=== PATIENT | male | born 1965 | race Caucasian/White ===

== ENCOUNTER 2016-11-27 23:00 | Observation (INO) ==
[2016-11-28] MEDS ORDERED: Mag Hydrox/Al Hydrox/Simeth 30 ML UDC PO PRN (00:46)
[2016-11-28] MEDS ORDERED: Haloperidol Lactate 5 MG/ML VIAL IM PRN ×2 (00:46→00:51)
[2016-11-28] MEDS ORDERED: *HR* LORazepam 1 MG TABLET PO PRN ×2 (00:46→00:54)
[2016-11-28] MEDS ORDERED: MOM Conc 10 ML UD.LIQ PO PRN (00:46)
[2016-11-28] MEDS ORDERED: *HR* LORazepam 2 MG/ML VIAL IM PRN ×2 (00:46→00:54)
[2016-11-28] MEDS ORDERED: hydrOXYzine pamoate 25 MG CAPSULE PO PRN (00:46)
[2016-11-28] MEDS ORDERED: traZODone 50 MG TABLET PO PRN (00:46)
[2016-11-28] MEDS ORDERED: Ibuprofen 400 MG TABLET PO PRN (00:46)
[2016-11-28] MEDS ORDERED: Nicotine 21 MG PATCH.TD24 TD SCH (09:00)
[2016-11-28 09:40] VITALS: BP 94/68
--- NOTE | 2016-11-28 10:18 | Psychiatry History & Physical ---
Date of Encounter: 11/28/16 Time of Encounter: 09:40 History of Present Illness Patient Stated Chief Complaint: "I was hearing voices." Medicare Admission Attestation: For traditional Medicare patients the provided hospital inpatient services are reasonable and necessary and in the case of services not specified as inpatient -only under 42 CFR 419.22 (n), that they are appropriately provided as inpatient services in accordance 42 CFR 412.3. For Critical Access Hospital the patient may reasonably be expected to be discharged or transferred to a hospital within 96 hours after admission to the Critical Access Hospital. Admitted From: Direct Admit Plans for Post Hospital Care: Home History of Present Illness: Mr. Booker is a 50 year old male with a long-standing history of schizophrenia and PTSD who presented to an outside hospital with increasing hallucinations and thoughts of wanting to hurt himself. He was admitted to for stabilization. Patient reports that he was taking Haldol and Ativan but he stopped taking his medications about a month ago because "I got angry and I did not think I needed them." Patient states that since he stopped the medications his hallucinations have worsened. He did have voices telling him to do things and that they were going to hurt him. He also had a plan to sit on the highway and get hit by a car in order to make the voices stop. He reports continued auditory hallucinations intermittently but denies any at the time of the interview. He does report low mood and increased anxiety. The Ativan does seem to help with patient's anxiety level. He denies paranoia or delusions at this time and is cooperative with staff if a little guarded. Past Med Surg Social Fam HX - Past Medical History Medical history: no medical history - Past Psychiatric History Psychiatric history: Reports: schizophrenia, previous psychiatric hospitalization Past psychiatric history details: Patient reports previous admissions to the hospital for his hallucinations. [facility] is [facility] and does have an outpatient psychiatrist there. Family psychiatric history: Yes Family Psychiatric History Details: Patient reports a family history of schizophrenia. Family History of Suicide: Unknown - Past Surgical History Surgical History: other - Social History Smoking Status: Current every day smoker Smokeless Tobacco Status: No Alcohol use: none Drug use: none Occupational status: disabled Current living situation: Home - Family History Mother History Unknown: Yes Living Status: Cause of : Patient is unsure Medications & Allergies Haloperidol [Haldol] 5 mg PO BID #20 tablet 07/06/16 [Rx] LORazepam [Ativan] 1 mg PO TID 07/27/16 [History] Allergies codeine Adverse Reaction (Verified 01/29/15 07:13) Nausea Review of Systems Constitutional: Denies: fever, chills, weakness, weight change Eyes: Denies: eye pain, vision change Ears, Nose, Throat: Denies: ear pain, throat pain, dental pain, hearing loss, congestion Cardiovascular: Denies: chest pain, palpitations, dyspnea on exertion Respiratory: Denies: cough, dyspnea, wheezes Gastrointestinal: Denies: abdominal pain, nausea, vomiting, diarrhea, constipation Genitourinary male: Denies: urgency, dysuria, frequency, genital lesions Genitourinary female: Denies: urgency, dysuria, frequency, abnormal menses, dyspareunia Musculoskeletal: Denies: joint swelling, joint pain Integumentary: Denies: rash, lesions, pruritus Neurological: Denies: headache, weakness, numbness, memory loss Psychiatric: Reports: anxiety, abnormal sleep pattern, suicidal ideation, auditory hallucinations, irritability, panic attacks Endocrine: Denies: fatigue, heat or cold intolerance Hematologic/Lymphatic: Denies: easy bruising, lymphadenopathy Allergic/Immunologic: Denies: urticaria, itchy eyes Mental Status Exam Patient orientation: Yes Person, Yes Time, Yes Place Level of alertness: Alert Patient appearance: Disheveled Behavior: guarded Psychomotor activity: Slowed Eye contact: Minimal Contact Mood description: Anxious Affect description: blunted Speech pattern: Slowed Speech volume: Normal Thought process: [place] Thought content: No Suicidal ideation Perceptual disturbances: No Reacting to internal stimuli, Yes Auditory hallucinations Attention span: Capable of Focused Attention Memory description: Grossly Intact Patient reliability: Reliable Historian Intelligence estimate: Average Judgment: Limited Insight: Partial Exam - Neurological Neurological exam IM: Present: CN II-XII intact Results - Vital Signs Vital signs: Temp Pulse Resp BP 97.4 F L 96 18 94/68 11/28/16 09:00 11/28/16 09:00 11/28/16 09:00 11/28/16 09:00 Assessment and Plan (1) Schizophrenia Current visit: Yes Status: Acute Plan: Admit inpatient for safety and stabilization, Close observation, Suicide Precautions per unit protocol, Encourage participation in unit milieu, Group Therapy, Monitor sleep, Monitor appetite Additional Plan: We will admit patient to 1 a for psychiatric stabilization. We have restarted Haldol for hallucinations. Patient's outpatient medications were reviewed and restarted. Patient would prefer to get his treatment at [facility] we will attempt to transfer him there. Continue to monitor and encourage group attendance as tolerated. Risks, benefits, side effects, alternatives discussed w/pt: Yes Patient agreeable to treatment: Yes Plans for Post Hospital Care: Home Estimated Length of Stay (Days): 2 Qualifiers: Schizophrenia type: paranoid schizophrenia Qualified Code(s): F20.0 - Paranoid schizophrenia (2) Anxiety Current visit: Yes Status: Acute Plan: Admit inpatient for safety and stabilization, Close observation, Suicide Precautions per unit protocol, Encourage participation in unit milieu, Group Therapy, Monitor sleep, Monitor appetite Additional Plan: Encourage positive coping strategies. Continue Ativan as needed for anxiety. Risks, benefits, side effects, alternatives discussed w/pt: Yes Patient agreeable to treatment: Yes
--- NOTE | 2016-11-28 14:08 | Discharge Summary ---
Date of Encounter: 11/28/16 Time of Encounter: 10:00 Diagnosis - Discharge Diagnosis (1) Schizophrenia Priority: Primary Status: Acute Qualifiers: Schizophrenia type: paranoid schizophrenia Qualified Code(s): F20.0 - Paranoid schizophrenia (2) Anxiety Priority: Secondary Status: Acute Medications - Discharge Medications Haloperidol [Haldol] 5 mg PO BID #20 tablet 07/06/16 [Rx] LORazepam [Ativan] 1 mg PO TID 07/27/16 [History] Haloperidol [Haldol] 5 mg PO BID tablet 11/28/16 [Rx] Allergies codeine Adverse Reaction (Verified 01/29/15 07:13) Nausea Provider Date of admission: 11/27/16 23:00 Primary care physician: PCP NO Discharging clinician: Cristel Juarez Assessment and Plan - Patient/Caregiver Discharge Instructions Activity: other (Transfer to [facility]) Diet: regular diet - Follow up Plan Follow up with: [facility] [Outside] ([facility] staff will schedule outpatient follow-up once your discharge date from [facility] mental health unit is known.) Functional capacity at discharge: independent ambulation Overall status at discharge: patient is not back to baseline Disposition: Transfer Other Hospital Course Hospital course: Mr. Booker is a 50 year old male with schizophrenia and anxiety symptoms who presented to an outside hospital with psychosis and suicidal ideation. He was admitted to [facility] for psychiatric stabilization because there were no beds available at the [facility]. Patient was incorporated into the therapeutic milieu and offer group and individual as well as recreational therapies. He was also offered psychoeducational materials and supportive therapy. He was placed on suicide precautions and close observation. Patient verbalized he was taking Haldol and Ativan and the prescription for restarted. He did request transfer to the [facility] as soon as there were available beds. Patient continued to report intermittent auditory hallucinations during his hospital stay. The [facility] accepted the patient and he will be transferred there for further treatment. Patient is stable for transfer and to continue further care at the [facility]. - Time Spent with Patient Total time spent providing and/or coordinating discharge services: Less than 30 minutes Quality - Multiple Antipsychotics Patient discharged on 2 or more antipsychotic medications: No Procedures - Procedures Procedures: Medication Management Mental Status Exam - Mental Status Exam Patient orientation: Yes Person Level of alertness: Alert Patient appearance: Unkempt Behavior: calm Psychomotor activity: Normal Eye contact: Diverts Contact Mood description: Anxious Affect description: flat Speech pattern: Slowed Speech Volume: Normal Thought process: [place] Thought Content: No Suicidal ideation, No Homicidal ideation Perceptual Disturbances: Yes Auditory hallucinations Judgment: Poor Insight: None
[2016-11-28] MEDS ORDERED: *HR* LORazepam 1 MG TABLET PO SCH (15:00)
== END 2016-11-28 15:10 ==
LOC: 1ANU 23:00 → INTOOBSV 23:00
PROVIDERS: ADMIT Student in an Organized Health Care Education/Training Program; ATTEND Student in an Organized Health Care Education/Training Program

== ENCOUNTER 2017-05-13 12:34 | Inpatient (IN) ==
--- NOTE | 2017-05-13 12:47 | Emergency Department Note ---
Overdose - [facility] Narrative Medical decision making narrative: Patient brought in secondary to overdose on Benadryl 48 pills of 25 mg capsules. Patient presents with tachycardia in the 100 beats minute with hypertension and dry mouth. he also has dilated pupils that are reactive to light and confusion. Patient is treated with 0.5 mg of Ativan which did correct his tachycardia. Patient became a little more lively and appointment time. Discussion with poison control was held he states that watch patient for QT prolongation, and patient will need to be monitored for 12-18 hours. Patient's labs show no elevations of acetaminophen or salicylate acid. No other positives on tox screen. Head CT negative for any intracranial abnormalities. Patient being held nothing by mouth. Plan is for admission for further evaluation. Patient may require psych eval because unable to get reasoning for Benadryl ingestion but this may be intentional ingestion. Patient lab work is normal. Patient is accepted for admission by Dr. Miramontes the hospitalist - Lab Data Lab results reviewed: Yes I reviewed the patient's lab results. Lab results narrative: Short CBC 05/13/17 Range/Units 13:19 WBC 6.8 (4.3-11.1) K/mcL Hgb 13.9 (12.9-16.9) g/dL Hct 42.5 (37.5-50.1) % Plt Count 246 (140-400) K/mcL Neutrophils # 3.6 (1.6-8.9) K/mcL BMP 05/13/17 Range/Units 13:19 Sodium 140 (136-145) mEq/L Potassium 5.1 (3.5-5.1) mEq/L Chloride 109 H (98-107) mEq/L Carbon Dioxide 26 (23-29) mEq/L BUN 21 H (6-20) mg/dL Creatinine 1.14 (0.70-1.30) mg/dL Glucose 92 (70-105) mg/dL Calcium 9.2 (8.6-10.3) mg/dL Liver Function 05/13/17 Range/Units 13:19 Total Bilirubin 0.4 (0.3-1.0) mg/dL Direct Bilirubin 0.0 (0.0-0.2) mg/dL AST 29 (13-39) Units/L ALT 63 H (7-52) Units/L Alkaline Phosphatase 66 (34-104) Units/L Albumin 4.0 (3.5-5.7) g/dL Urine 05/13/17 Range/Units 13:18 Urine Color Yellow (Yellow) Urine Clarity Clear (Clear) Urine pH 6.5 (5.0-8.0) pH Units Ur Specific [place] 1.017 (1.010-1.025) Urine Protein Negative (Neg-Trace) mg/dL Urine Glucose (UA) Normal (Normal) mg/dL Result diagrams: 05/13/17 13:19 05/13/17 13:19 - Radiology Data Radiology results reviewed: Yes I reviewed the patient's radiology results. Head CT 05/13/17 13:45 IMPRESSION: No acute intracranial abnormality. D/ / Rafael Woo MD / Rafael Woo MD Interpreting Provider: Rafael Woo MD - EKG Data EKG attestation: Yes I reviewed and interpreted this EKG. EKG results narrative: EKG taken 05/13/2017 at 1250 hrs. shows sinus rhythm with mild Q-T/QTc duration of 495/449 ms, QS duration 109 ms. Rate 96 bpm with out STL elevation and depressions in any leads. No previous EKG for comparison Overdose HPI - General Chief Complaint: ED Overdose Stated Complaint: benadryl OD Time Seen by Provider: 05/13/17 12:37 Source: EMS Mode of arrival: EMS Limitations: altered mental status Nursing Notes Reviewed: Yes Vital Signs Reviewed: Yes - History of Present Illness HPI Narrative: 51-year-old male brought in by EMS for suspected Benadryl overdose of 4825 mg pills Benadryl. Patient's coming in from a [facility]. Patient has periodic episodes of altered mental status which makes it difficult for patient answer any questions at this time. Pt Subjective Complaint: intentional overdose - Related Data Home Medications Medication Instructions Recorded Confirmed Benztropine Mesylate 1 mg PO BID 05/13/17 05/13/17 Chlorhexidine Gluconate [Peridex] 15 ml MM BID 05/13/17 05/13/17 Cholecalciferol (D-3) [Vitamin D] 2,000 unit PO DAILY 05/13/17 05/13/17 DiphenhydraMINE [Benadryl] 25 mg PO AD PRN 05/13/17 05/13/17 Ibuprofen [Motrin] 400 mg PO Q6H PRN 05/13/17 05/13/17 Lactose-Reduced Food [Ensure Plus] 237 ml PO BID 05/13/17 05/13/17 Loxapine Succinate [Loxapine] 100 mg PO BID 05/13/17 05/13/17 Melatonin [Melatin] 3 mg PO HS 05/13/17 05/13/17 Mirtazapine [Remeron] 15 mg PO HS 05/13/17 05/13/17 Nitroglycerin [Nitrostat] 0.4 mg SL Q5M PRN 05/13/17 05/13/17 Propranolol [Inderal] 10 mg PO BID 05/13/17 05/13/17 hydrOXYzine HCl [Hydroxyzine HCl] 50 mg PO QID PRN 05/13/17 05/13/17 Allergies Allergy/AdvReac Type Severity Reaction Status Date / Time codeine AdvReac Nausea Verified 04/23/17 16:33 hydrocodone AdvReac See Verified 05/13/17 15:23 Comments All systems ED: reviewed and negative except as stated. Review of Systems: As Per HPI Constitutional: Denies: fever, weakness Eyes: Denies: vision change ENT ED: Denies: congestion Cardiovascular: Denies: chest pain, palpitations Past Medical History - Past Medical History Attestation: Yes The following information was validated with the patient. Source: patient, nursing notes reviewed Medical history: Reports: myocardial infarction, other (schizophrenic) Surgical history: Reports: orthopedic, other (Right hand surgery) Psychiatric history: Reports: anxiety, bipolar, PTSD, schizophrenia, previous psychiatric hospitalization - Social History Smoking Status: Current every day smoker Smokeless Tobacco Status: No Alcohol use: Reports: none Drug use: Reports: none Physical Exam Head: atraumatic Skin: Warm, dry, intact Head: Normocephalic and atraumatic Neck: Supple, trachea midline and no tenderness Cardiovascular: Tachycardic, no murmur, normal perfusion Respiratory: CTAB, no wheezing, cough, or respiratory distress Musculoskeletal: No obvious deformity. Normal strength on exam. GI: Soft, nontender, nondistended. Neuro: Unable to complete neurologic exam secondary to patient condition however he is moving all extremities. Course - Consultations Consultation #1: Poison control: tachycardia htn treat with benzo watch for urine retention Time: 12:45 Disposition Clinical Impression: Overdose of drug Qualifiers: Encounter type: initial encounter Injury intent: undetermined intent Qualified Code(s): T50.904A - Poisoning by unspecified drugs, medicaments and biological substances, undetermined, initial encounter Altered mental status Qualifiers: Altered mental status type: disorientation Qualified Code(s): R41.0 - Disorientation, unspecified Disposition: Admitted As Inpatient Condition: Fair Time of Disposition: 16:23 Attestation Statement - Attestation Attestation: I, Andreas Morejon, examined this patient and my medical decision-making was reviewed with the REHAB SERVICES AIDE/PA/Advanced Practice Nurse/Resident Physician. I agree with the documented findings, disposition and treatment plan as described except to the extent set forth below. 51-year-old male presents to emergency department after suspected Benadryl overdose. Patient is from a [facility], he was reported to have taken a large amount of 25 mg Benadryl tablets. Patient is unable to give a history regarding his case and presentation. It is unclear whether this was a suicide attempt. Patient's pupils are large bilaterally however they are reactive to light and accommodation. Patient is unable to follow commands for a full neurologic evaluation however he is moving all extremities. CT of the head was negative for acute fracture or intracranial hemorrhage. Resident spoke with the Poison Control Center who recommended the patient be evaluated and observed in the hospital for an extended period of time. He will be admitted for further Evaluation and ultimately a behavioral health evaluation for possible suicidal ideation.
[2017-05-13] MEDS ORDERED: *HR* LORazepam 2 MG/ML VIAL IVP ONE (12:50)
[2017-05-13] MEDS ORDERED: 0.9 % Sodium Chloride 1,000 ML IVC ONE (12:50)
[2017-05-13 13:31] LABS: Basophils # 0.1 K/mcL (0.0-0.2); Basophils % 0.7 %; Eosinophils # 0.2 K/mcL (0.0-0.6); Eosinophils % 2.3 %; Hematocrit 42.5 % (37.5-50.1); Hemoglobin 13.9 g/dL (12.9-16.9); Immature Granulocytes % 0.3 % (0-4); Lymphocytes # 2.3 K/mcL (0.6-4.6); Lymphocytes % 34.4 %; Mean Corpuscular HGB Conc 32.7 g/dL (31.6-35.5); Mean Corpuscular Volume 91.6 fL (83.0-100.0); Mean Platelet Volume 10.6 fL (9.4-12.4); Monocytes # 0.6 K/mcL (0.0-1.3); Neutrophils # 3.6 K/mcL (1.6-8.9); Platelet Count 246 K/mcL (140-400); Red Blood Count 4.64 M/mcL (4.19-5.50); Segmented Neutrophils % 53.3 %
[2017-05-13 13:34] LABS: Bilirubin,Urine Negative (Negative); Blood,Urine Negative (Negative); Clarity,Urine Clear (Clear); Color,Urine Yellow (Yellow); Glucose,Urine (UA) Normal (Normal); Ketones,Urine Negative (Negative); Leukocyte Esterase,Urine Trace (Negative); Nitrite,Urine Negative (Negative); PH,Urine 6.5 pH Units (5.0-8.0); Protein,Urine Negative (Neg-Trace); Specific Gravity,Urine 1.017 (1.010-1.025); Urobilinogen,Urine Normal (Normal)
[2017-05-13 13:35] LABS: Bacteria,Urine None Seen per hpf (None-Few); Hyaline Casts,Urine None Seen per lpf (None-Few); Squamous Epithelial Cell,Urine Many per lpf (None-Few); WBC,Urine 0-3 per hpf (0-3)
[2017-05-13 13:40] LABS: Amphetamine Screen,Urine Negative ng/mL (Cutoff=1000); Barbiturate Screen,Urine Negative ng/mL (Cutoff=200); Benzodiazepines Screen,Urine Negative ng/mL (Cutoff=200); Cannabinoid Screen,Urine Negative ng/mL (Cutoff = 50); Cocaine Screen,Urine Negative ng/mL (Cutoff= 300); Opiate Screen,Urine Negative ng/mL (Cutoff=300); Phencyclidine Screen,Urine Negative ng/mL (Cutoff=25)
[2017-05-13 13:46] LABS: Acetaminophen < 1.0 mcg/mL (10-30); Ethanol < 10 mg/dL (0-10); Salicylate < 5.0 mg/dL (15.0-30.0)
[2017-05-13 14:03] LABS: Alanine Aminotransferase 63 Units/L (7-52); Albumin/Globulin Ratio 1.5 (1.1-2.2); Alkaline Phosphatase 66 Units/L (34-104); Aspartate Amino Transferase 29 Units/L (13-39); BUN/Creatinine Ratio 18 (6-26); Bilirubin,Indirect 0.4 mg/dL (0.0-1.2); Bilirubin,Total 0.4 mg/dL (0.3-1.0); Blood Urea Nitrogen 21 mg/dL (6-20); Calcium 9.2 mg/dL (8.6-10.3); Carbon Dioxide 26 mEq/L (23-29); Chloride 109 mEq/L (98-107); Globulin 2.6 g/dL (2.4-3.5); Glucose 92 mg/dL (70-105); Osmolality,Calculated 293 (280-300); Potassium 5.1 mEq/L (3.5-5.1); Sodium 140 mEq/L (136-145); Total Protein 6.6 g/dL (6.4-8.9); eGFR For African Americans > 60 (> 60); eGFR For Non-African Americans > 60 (> 60)
[2017-05-13] MEDS ORDERED: Naloxone 0.4 MG/ML INJ IVP PRN (21:35)
[2017-05-13] MEDS ORDERED: Acetaminophen 325 MG TABLET PO PRN (21:35)
[2017-05-13] MEDS ORDERED: Ondansetron 4 MG/2 ML VIAL IVP PRN (21:35)
[2017-05-13] MEDS ORDERED: Nitroglycerin 0.4 MG TAB.SUBL SL PRN (21:39)
[2017-05-13] MEDS ORDERED: hydrOXYzine pamoate 25 MG CAPSULE PO PRN (21:39)
[2017-05-13] MEDS ORDERED: Melatonin 3 MG TABLET PO PRN (22:00)
[2017-05-13] MEDS: 0.9 % Sodium Chloride 1,000 ML IVC SCH (22:09)
[2017-05-13] MEDS ORDERED: Nicotine 2 MG GUM BC PRN (22:15)
--- NOTE | 2017-05-13 23:39 | Internal Med History&Physical ---
Date of Encounter: 05/13/17 Time of Encounter: 21:00 Assessment and Plan (1) Overdose of drug Current visit: Yes Status: Acute Pt. reports taking 12 Benadryl last night at 25 mg each to help him sleep. Patient states he did not sleep for 6 days prior. Patient also states he is use this method several times before but denies any intent for self-harm or any suicidal ideations. Patient has history of anxiety, bipolar depression, schizophrenia, PTSD, prior psychiatric hospitalization. CT of head negative for acute fracture or intracranial hemorrhage today. Poison Control Center was contacted with recommendation that patient be observed for 12-18 hours for QT prolongation. Continuous cardiac telemetry. IV 0.9 NS @ 100 mL/HR. Continue pts. psychiatric medications. Will hold diphenhydramine. Psychiatric consult ordered. Patient discussed with Dr. Parekh who agrees w/plan of care. Pt. is at high risk for further morbidity based on OD and current tachycardia, previous SD, and hx of psychiatric conditions. Observation. Qualifiers: Encounter type: initial encounter Injury intent: undetermined intent Qualified Code(s): T50.904A - Poisoning by unspecified drugs, medicaments and biological substances, undetermined, initial encounter (2) History of psychiatric disorder Current visit: Yes Status: Chronic Hx of chronic anxiety, bipolar depression, PTSD, schizophrenia, and previous psychiatric hospitalization. Continue patient's Remeron, loxapine, hydroxyzine, and benztropine mesylate. (3) Hx of myocardial infarction, greater than 8 weeks Current visit: Yes Status: Chronic Hx of SD 3 months ago w/o stent placement. Stable. (4) HTN (hypertension) Current visit: Yes Status: Chronic Hx of chronic HTN. Monitor pt. and VS. Continue pts. Inderal. Qualifiers: Hypertension type: essential hypertension Qualified Code(s): I10 - Essential (primary) hypertension (5) Tobacco abuse Current visit: Yes Status: Chronic Hx of chronic tobacco abuse. Pt. does not wish to quit at this time d/t stress in life. Nicotine gum ordered. (6) DVT prophylaxis Current visit: Yes Status: Acute Lovenox 40 mg 0600 for DVT prophylaxis. Monitor pt. for signs of bleeding. Internal Medicine - H&P: HPI Chief complaint: Benadryl OD Admitted From: Emergency Dept Plans for Post Hospital Care: Home History of present illness: Mr. Booker is a 51 year old male with medical hx of previous myocardial infarction 3 months with no stent placement, HTN, and psychiatric history of anxiety, bipolar depression, PTSD, schizophrenia, and previous psychiatric hospitalization presents from the ED with chief complaint abdominal draw overdose last night. Patient states he took 12 Benadryl at 25 mg each to help sleep because he had not slept for 6 days prior. Patient states he has done several times before. Patient denies any suicidal ideation or intent for self- harm. Patient reports tachycardia, confusion, and anxiousness. Patient denies recent illness, fever, chills, nausea, vomiting, chest pain, palpitations, headache, changes in vision, abdominal pain, diarrhea, constipation, numbness, tingling, dizziness, lightheadedness, pre-syncope, or syncope. Past Med Surg Social Fam HX - Past Medical History Source: patient Medical history: myocardial infarction (3 months ago w/no stents), other ( schizophrenic) Psychiatric history: anxiety, bipolar, PTSD, schizophrenia, previous psychiatric hospitalization - Past Surgical History Surgical History: orthopedic, other (Right hand surgery) - Social History Smoking Status: Current every day smoker Packs per day: 1.5 PPD Smokeless Tobacco Status: No Alcohol use: none Drug use: none Current living situation: [facility] Activity Level: Independent ambulation Recent Out of Country Travel Within the Last 8 Weeks: No Exposure or Possible Exposure to Illness During Travel: No - Family History Mother History Unknown: Yes Race: Family Member Ethnicity: Non- Living Status: Father Race: Family Member Ethnicity: Non- Living Status: Age at : 72 Cause of : Unknown Sister Race: Family Member Ethnicity: Non- Living Status: Still Living Hx Family Psychosocial Disorders: Yes (PTSD) Internal Medicine - H&P: Meds Benztropine Mesylate 1 mg PO BID 05/13/17 [History] Chlorhexidine Gluconate [Peridex] 15 ml MM BID 05/13/17 [History] Cholecalciferol (D-3) [Vitamin D] 2,000 unit PO DAILY 05/13/17 [History] DiphenhydraMINE [Benadryl] 25 mg PO AD PRN 05/13/17 [History] Ibuprofen [Motrin] 400 mg PO Q6H PRN 05/13/17 [History] Lactose-Reduced Food [Ensure Plus] 237 ml PO BID 05/13/17 [History] Loxapine Succinate [Loxapine] 100 mg PO BID 05/13/17 [History] Melatonin [Melatin] 3 mg PO HS 05/13/17 [History] Mirtazapine [Remeron] 15 mg PO HS 05/13/17 [History] Nitroglycerin [Nitrostat] 0.4 mg SL Q5M PRN 05/13/17 [History] Propranolol [Inderal] 10 mg PO BID 05/13/17 [History] hydrOXYzine HCl [Hydroxyzine HCl] 50 mg PO QID PRN 05/13/17 [History] 3 Allergy/AdvReac Type Severity Reaction Status Date / Time codeine AdvReac Nausea Verified 04/23/17 16:33 hydrocodone AdvReac See Verified 05/13/17 15:23 Comments All Systems PM: A 10-system review of systems was performed and is negative for pertinent findings except as documented above in the HPI. - Constitutional Constitutional: no chills, no fever(s), no night sweats - EENT Eyes: no change in vision, no discharge, no pain, no photophobia Ears: no ear discharge, no ear pain, no tinnitus Nose, mouth and throat: no dysphagia, no nasal discharge, no neck pain, no sore throat - Breasts Breasts: as per HPI - Cardiovascular Cardiovascular ROS IM: as per HPI, irregular heart rhythm (Tachycardia) - Respiratory Respiratory: no cough, no dyspnea, no wheezing, no excessive phlegm production - Gastrointestinal Gastrointestinal: no abdominal pain, no diarrhea, no hematemesis, no hematochezia, no melena, no nausea, no vomiting - Genitourinary Genitourinary ROS male: as per HPI - Musculoskeletal Musculoskeletal ROS IM: no numbness, no tingling - Integumentary Integumentary IM: no rash, no unusual bruising - Neurological Neurological ROS: no confusion, no convulsions, no focal weakness, no numbness, no tingling, no tremor(s) - Psychiatric Psychiatric: as per HPI, anxiety, depression, other (PTSD, schizophrenia, previous psychiatric hospitalization) - Endocrine Endocrine IM: as per HPI - Hematologic/Lymphatic Hematologic/Lymphatic: no easy bruising - Allergic/Immunologic Allergic/Immunologic: as per HPI - Constitutional Vitals: Temp Pulse Resp BP Pulse Ox 97.8 F 66 17 121/85 95 05/13/17 23:23 05/13/17 23:23 05/13/17 23:23 05/13/17 23:23 05/13/17 23:23 General appearance: Present: cooperative, A&O X 3, pleasant, no acute distress, answers questions appropriately - Head Head exam: Present: atraumatic, normal inspection, normocephalic - Eye Eye exam: Present: PERRL, conjuntiva pink, sclera anicteric Pupils: Present: PERRL - ENT ENT exam: Present: normal exam, normal external ear exam - Neck Neck exam general surgery: Present: normal inspection, supple, trachea midline. Absent: lymphadenopathy - Respiratory Respiratory exam: Present: CTAB. Absent: accessory muscle use, rales, rhonchi, wheezes - Cardiovascular Cardiovascular exam: Present: tachycardia - GI/Abdominal GI/Abdominal exam: Present: normal bowel sounds, soft, no peritoneal signs. Absent: distended, tenderness - Rectal Rectal exam: Present: deferred - Additional comments: exam deferred. - Extremities Exam Extremities exam: Present: warm, radial pulses palpable and symmetrical. Absent : calf tenderness, cyanotic, pedal edema - Back Exam Back exam: Present: normal inspection - Neurological Exam Neurological exam: Present: CN II-XII intact, oriented X3, no focal deficits. Absent: pronater drift, facial droop, speech deficit - Psychiatric Psychiatric exam: Present: anxious - Skin Skin exam: Present: dry, intact Internal Med - H&P Results - Labs CBC & Chem 7: 05/13/17 13:19 05/13/17 13:19 - Diagnostic Studies CT scan - head Additional comments: Impressions Head CT 05/13/17 13:45 IMPRESSION: No acute intracranial abnormality. D/ / Rafael Woo MD / Rafael Woo MD Interpreting Provider: Rafael Woo MD
[2017-05-14] MEDS ORDERED: *HR* Enoxaparin 40 MG/0.4 ML SYRINGE SQ SCH (06:00)
[2017-05-14 06:40] LABS: Basophils # 0.1 K/mcL (0.0-0.2); Basophils % 0.8 %; Eosinophils # 0.3 K/mcL (0.0-0.6); Eosinophils % 3.3 %; Hematocrit 43.4 % (37.5-50.1); Immature Granulocytes % 0.4 % (0-4); Lymphocytes # 3.3 K/mcL (0.6-4.6); Lymphocytes % 43.5 %; Mean Corpuscular HGB Conc 32.3 g/dL (31.6-35.5); Mean Corpuscular Hemoglobin 30.2 pg (28.0-33.3); Mean Corpuscular Volume 93.5 fL (83.0-100.0); Mean Platelet Volume 10.5 fL (9.4-12.4); Monocytes # 0.6 K/mcL (0.0-1.3); Monocytes % 7.5 %; Neutrophils # 3.4 K/mcL (1.6-8.9); Platelet Count 251 K/mcL (140-400); Red Blood Count 4.64 M/mcL (4.19-5.50); Red Cell Distribution Width 13.2 % (11.5-14.5); Segmented Neutrophils % 44.5 %
[2017-05-14 07:08] LABS: Alanine Aminotransferase 67 Units/L (7-52); Albumin 3.9 g/dL (3.5-5.7); Albumin/Globulin Ratio 1.6 (1.1-2.2); Alkaline Phosphatase 65 Units/L (34-104); Aspartate Amino Transferase 31 Units/L (13-39); BUN/Creatinine Ratio 15 (6-26); Bilirubin,Total 0.5 mg/dL (0.3-1.0); Blood Urea Nitrogen 16 mg/dL (6-20); Calcium 8.9 mg/dL (8.6-10.3); Carbon Dioxide 27 mEq/L (23-29); Chloride 110 mEq/L (98-107); Chol/HDL Ratio 3.4 (0-4.9); Cholesterol 171 mg/dL (< 200); Globulin 2.5 g/dL (2.4-3.5); Glucose 92 mg/dL (70-105); HDL Cholesterol 50 mg/dL (40-59); LDL Cholesterol,Calculated 96 mg/dL (0-99); Magnesium 2.2 mg/dL (1.6-2.6); Osmolality,Calculated 295 (280-300); Potassium 4.1 mEq/L (3.5-5.1); Sodium 142 mEq/L (136-145); Total Protein 6.4 g/dL (6.4-8.9); Triglycerides 126 mg/dL (< 150); eGFR For African Americans > 60 (> 60); eGFR For Non-African Americans > 60 (> 60)
[2017-05-14] MEDS: 0.9 % Sodium Chloride 1,000 ML IVC SCH (08:30)
[2017-05-14] MEDS ORDERED: LOXAPINE 10 MG PO SCH (09:00)
[2017-05-14] MEDS ORDERED: Chlorhexidine Rinse 15 ML MOUTHWASH MM SCH (09:00)
[2017-05-14] MEDS ORDERED: Cholecalciferol (D-3) 1,000 UNIT TABLET PO SCH (09:00)
[2017-05-14] MEDS ORDERED: LACTOSE REDUCED FOOD PO SCH (09:00)
[2017-05-14 11:48] VITALS: BP 110/75
--- NOTE | 2017-05-14 12:15 | Discharge Summary ---
Date of Encounter: 05/14/17 Time of Encounter: 08:10 - Discharge Diagnosis (1) Overdose of drug Priority: Primary Status: Acute Comments: Patient reports taking overdose of 12 twenty-five mg Benadryl capsules last day in an attempt to sleep. He states he had not stopped for 6 nights. Patient denies any suicidal ideations, was not trying to harm himself. Patient was prior medical history of anxiety, bipolar depression, schizophrenia , PTSD, prior mental health admissions. He does live in a [place] [facility]. Patient was evaluated by psychiatry today, he was found to not have any suicidal or homicidal ideations. He does not want to harm himself. Patient wants to go home, psychiatry agrees that he is safe and stable for discharge. CT of his head was negative. Labs are within normal limits, vital signs are within normal limits and stable. EKG Qualifiers: Encounter type: initial encounter Injury intent: undetermined intent Qualified Code(s): T50.904A - Poisoning by unspecified drugs, medicaments and biological substances, undetermined, initial encounter (2) History of psychiatric disorder Priority: Secondary Status: Chronic Comments: Pt has history of PTSD, bipolar disorder, schizophrenia, and prior mental health admissions. Continue Remeron, Loxapine, hydroxyzine, and Cogentin. (3) Hx of myocardial infarction, greater than 8 weeks Priority: Secondary Status: Chronic Comments: ID 3 months ago with stent placement. Stable. Denies chest pain. (4) HTN (hypertension) Priority: Primary Status: Chronic Comments: Chronic. Continue home medications. Qualifiers: Hypertension type: essential hypertension Qualified Code(s): I10 - Essential (primary) hypertension (5) DVT prophylaxis Priority: Secondary Status: Acute Comments: Lovenox subcutaneous daily. - Discharge Medications Home Medications: Benztropine Mesylate 1 mg PO BID 05/13/17 [History] Chlorhexidine Gluconate [Peridex] 15 ml MM BID 05/13/17 [History] Cholecalciferol (D-3) [Vitamin D] 2,000 unit PO DAILY 05/13/17 [History] DiphenhydraMINE [Benadryl] 25 mg PO AD PRN 05/13/17 [History] Ibuprofen [Motrin] 400 mg PO Q6H PRN 05/13/17 [History] Lactose-Reduced Food [Ensure Plus] 237 ml PO BID 05/13/17 [History] Loxapine Succinate [Loxapine] 10 mg PO BID 05/13/17 [History] Melatonin [Melatin] 3 mg PO HS 05/13/17 [History] Mirtazapine [Remeron] 15 mg PO HS 05/13/17 [History] Nitroglycerin [Nitrostat] 0.4 mg SL Q5M PRN 05/13/17 [History] Propranolol [Inderal] 10 mg PO BID 05/13/17 [History] hydrOXYzine HCl [Hydroxyzine HCl] 50 mg PO QID PRN 05/13/17 [History] Allergies/Adverse Reactions: 3 Allergy/AdvReac Type Severity Reaction Status Date / Time codeine AdvReac Nausea Verified 04/23/17 16:33 hydrocodone AdvReac See Verified 05/13/17 15:23 Comments Date of admission: 05/14/17 09:35 [facility] Discharging clinician: Lakesha Jiménez Anticipated date of discharge: 05/14/17 - Patient Status Disposition: Home, Self-Care Condition: Good Functional capacity at discharge: independent ambulation Overall status at discharge: patient is back to baseline - Discharge Instructions Follow Up With: [facility] [Primary Care Provider] - Additional Instructions: Please follow-up with your [facility] doctor in the next 7-10 days for recheck. Please resume your normal home medications. Please return to your normal activities and diet as tolerated. Return to the emergency department as needed for any other problems or concerns. - Diet and Activity Activity: increase activity as tolerated Diet: advance to your usual diet Hospital course: Mr. Booker is a 51 year old male with past medical history of recent ID 3 months ago with no stent placement, hypertension, anxiety, bipolar, PTSD, schizophrenia. He was admitted to Hospital last night from his [facility] with intentional overdose with no intent to harm himself. Pt states that he was not trying to harm himself and states that he was trying to get some sleep since, per his account, he had not slept in 6 nights. Pt was evaluated by psychiatry, found to be stable and suitable for discharge. His labs and vitals are stable. Pt states that he needs to be discharged to go meet the son of a friend of his and has been anxious to be discharged since 0820 this a.m. - Time Spent with Patient Total time spent providing and/or coordinating discharge services: Less than 30 minutes - Constitutional Vitals: Temp Pulse Resp BP Pulse Ox 98.7 F 92 16 110/75 96 05/14/17 11:46 05/14/17 11:46 05/14/17 11:46 05/14/17 11:46 05/14/17 11:46 General appearance: Present: cooperative, A&O X 3, pleasant, no acute distress, answers questions appropriately - Head Head exam: Present: atraumatic, normal inspection, normocephalic - Eye Eye exam: Present: normal appearance, conjuntiva pink, sclera anicteric - Neck Neck exam general surgery: Present: supple, trachea midline. Absent: lymphadenopathy, tenderness - Respiratory Respiratory exam: Present: CTAB. Absent: accessory muscle use, rales, rhonchi, wheezes - Cardiovascular Cardiovascular exam: Present: RRR, +S1, +S2. Absent: diastolic murmur, gallop, rubs, systolic murmur - GI/Abdominal GI/Abdominal exam: Present: normal bowel sounds, soft, no peritoneal signs. Absent: hepatomegaly, tenderness - Extremities Exam Extremities exam: Present: normal capillary refill, warm, radial pulses palpable and symmetrical. Absent: calf tenderness, cyanotic, pedal edema, tenderness - Neurological Exam Neurological exam: Present: alert, oriented X3, no focal deficits. Absent: facial droop, speech deficit - Skin Skin exam: Present: dry, intact, normal color, warm. Absent: rash
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
[2017-05-14] MEDS ORDERED: *HR* Heparin 5,000 UNIT/ML VIAL SQ SCH (18:00)
--- NOTE | 2017-05-14 18:46 | Electrocardiograph Report ---
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
--- NOTE | 2017-05-14 20:28 | Electrocardiograph Report ---
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
[2017-05-14] MEDS ORDERED: Mirtazapine 15 MG TABLET PO SCH (21:00)
[2017-05-14] MEDS ORDERED: Melatonin 3 MG TABLET PO SCH (21:00)
--- NOTE | 2017-05-15 16:34 | Electrocardiograph Report ---
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
== END 2017-05-14 13:36 | disposition home or self-care (01) | DRG 918 ==
LOC: 3BNU 12:34 → EMEROO 12:34 → 3BNU 16:08
PROVIDERS: ADMIT Internal Medicine; ATTEND Registered Nurse

== ENCOUNTER 2017-12-24 01:18 | Inpatient (IN) ==
[2017-12-24] MEDS ORDERED: clonazePAM 0.5 MG TABLET PO ONE (03:28)
[2017-12-24] MEDS ORDERED: Naloxone 0.4 MG/ML INJ IVP PRN (03:59)
[2017-12-24 04:08] LABS: Basophils % 0.4 %; Eosinophils # 0.1 K/mcL (0.0-0.6); Eosinophils % 2.1 %; Hematocrit 33.1 % (37.5-50.1); Hemoglobin 11.1 g/dL (12.9-16.9); Immature Granulocytes % 0.2 % (0-4); Lymphocytes # 1.5 K/mcL (0.6-4.6); Lymphocytes % 26.3 %; Mean Corpuscular HGB Conc 33.5 g/dL (31.6-35.5); Mean Corpuscular Hemoglobin 31.4 pg (28.0-33.3); Mean Corpuscular Volume 93.8 fL (83.0-100.0); Mean Platelet Volume 10.7 fL (9.4-12.4); Monocytes # 0.6 K/mcL (0.0-1.3); Monocytes % 10.4 %; Neutrophils # 3.4 K/mcL (1.6-8.9); Platelet Count 206 K/mcL (140-400); Red Blood Count 3.53 M/mcL (4.19-5.50); Red Cell Distribution Width 13.8 % (11.5-14.5); Segmented Neutrophils % 60.6 %
--- NOTE | 2017-12-24 04:10 | Internal Med History&Physical ---
<Manpreet Camargo - Last Filed: 12/24/17 04:05> Date of Encounter: 12/24/17 Time of Encounter: 04:05 Internal Medicine - H&P: HPI Chief complaint: Found down, JUANI Admitted From: Hospital to Hospital Transfer History of present illness: Mr. Booker is a 52 year old male with a PMHx of schizophrenia, depression, multiple suicide attempts, PTSD, bipolar disorder was transferred from [facility] after being found down on the side of the road. At time of interview, patient is alert and oriented 4 however he does have His Memory Is Unable to Provide a Reliable History. He States That He Was Walking along the Side of the Road and Just Laid down. EMS at that time was called and at [facility] he was noted to have an acute kidney injury with reported creatinine in the sevens. We are unable to confirm [place] emergency room his records at this time. He reportedly received a bolus of normal saline and was transferred to this facility. Patient does answer questions at time of interview and states that he has not been having any fevers, chills, chest pain, shortness breath, abdominal pain, flank pain, dysuria. He has noticed a decreased urine output in the last couple days. Denies hematuria. He states he has been compliant with all his medications until 3 days ago when he ran out. He denies any [id number] or illicit drug use. He does note that he is clinically feeling depressed but denies any suicidal ideation at this time. Denies loss of consciousness but cannot elaborate on circumstances surrounding events. Vitals stable on presentation, labs pending. CT head was reportedly unremarkable. PMHx as above PShx denies Social: 1PPD smoker, denies alcohol or drug use. Former marijuana and alcohol, quit 20 years ago Past Med Surg Social Fam HX - Past Medical History Medical history: myocardial infarction Additional medical history: [facility] Psychiatric history: PTSD, prior suicide attempt, previous psychiatric hospitalization - Past Surgical History Surgical History: orthopedic, other (Right hand surgery) Additional surgical history: Right hand - Social History Smoking Status: Current every day smoker Packs per day: 1 Smokeless Tobacco Status: No Alcohol use: none Drug use: none - Family History Mother Family Member Ethnicity: Non- Living Status: Father Family Member Ethnicity: Non- Living Status: Sister Family Member Ethnicity: Non- Living Status: Still Living Internal Medicine - H&P: Meds Benztropine Mesylate 1 mg PO BID 05/13/17 [History] Chlorhexidine Gluconate [Peridex] 15 ml MM BID 05/13/17 [History] Cholecalciferol (D-3) [Vitamin D] 2,000 unit PO DAILY 05/13/17 [History] DiphenhydraMINE [Benadryl] 25 mg PO AD PRN 05/13/17 [History] Ibuprofen [Motrin] 400 mg PO Q6H PRN 05/13/17 [History] Lactose-Reduced Food [Ensure Plus] 237 ml PO BID 05/13/17 [History] Loxapine Succinate [Loxapine] 10 mg PO BID 05/13/17 [History] Melatonin [Melatin] 3 mg PO HS 05/13/17 [History] Mirtazapine [Remeron] 15 mg PO HS 05/13/17 [History] Nitroglycerin [Nitrostat] 0.4 mg SL Q5M PRN 05/13/17 [History] Propranolol [Inderal] 10 mg PO BID 05/13/17 [History] hydrOXYzine HCl [Hydroxyzine HCl] 50 mg PO QID PRN 05/13/17 [History] 3 Allergy/AdvReac Type Severity Reaction Status Date / Time codeine AdvReac Nausea Verified 04/23/17 16:33 hydrocodone AdvReac See Verified 05/13/17 15:23 Comments ROS unobtainable: due to mental status All Systems PM: A 10-system review of systems was performed and is negative for pertinent findings except as documented above in the HPI. - Constitutional Constitutional: no chills, no fever(s) - Cardiovascular Cardiovascular ROS IM: no chest pain, no dyspnea, no dyspnea on exertion, no edema - Respiratory Respiratory: no cough, no dyspnea, no dyspnea on exertion - Gastrointestinal Gastrointestinal: no abdominal pain, no diarrhea, no hematemesis, no hematochezia, no nausea, no vomiting - Genitourinary Genitourinary ROS male: as per HPI (decreased urine output), no difficulty urinating, no dysuria, no flank pain, no hematuria, no urinary urgency - Integumentary Integumentary IM: no rash - Neurological Neurological ROS: confusion, no numbness, no tingling - Psychiatric Psychiatric: confusion, depression, no auditory hallucinations, no behavioral changes, no hallucinations, no homicidal ideation, no suicidal ideation - Constitutional Vitals: Temp Pulse Resp BP Pulse Ox 98.6 F 96 22 124/95 98 12/24/17 03:11 12/24/17 03:11 12/24/17 03:11 12/24/17 03:11 12/24/17 03:11 Exam: Gen.: Vitals noted. No acute distress. AAOx4. Constant jerking motions while resting comfortably in bed. HEENT: PERRL/EOMI, oropharynx clear, Normocephalic, atraumatic, dry mucous membranes Cardiac: RRR, no murmur, +S1/S2 Pulmonary: CTA bilaterally, no wheezes, rales or rhonchi, equal chest expansion Abdomen: soft, nontender, BS noted, no guarding, no rebound. Extremities: no BLE edema, nontender calf, no cyanosis or clubbing Neuro: A&Ox3, moves all extremities, no focal deficits Psych: Appropriate mood and behavior. pleasant - Assessment and plan (1) JUANI (acute kidney injury) Current Visit: Yes Status: Acute Assessment and plan: - reported JUANI per [facility] - Labs have not yet arrived in unit - Will obtain repeat labs STAT - Patient is AOx4 and does not appear to be actively uremic. K was noted to be in 4s. - Started on fluids at [facility], suspect evidence of pre-renal syndrome given HPI and clinically dry on exam - Possible rhabdomyolisis and patient was found lying on side of road vs drug induced Plan - Will continue fluids at 125/hr and adjust based on labs - Consult to nephrology, appreciate recs - History is not clear, will obtain multiple labs to determine etiology including BMP, CK, UDS, Mg, alcohols, TCA level (2) History of psychiatric disorder Current Visit: Yes Status: Chronic Assessment and plan: - Known and documented history of schizophrenia, depression, multiple suicidal attempts, PTSD, bipolar disorder - Home medications include hydroxyzine, mirtazapine, loxapine, benztropine per chart review - Patient states he has been compliant but is having depression symptoms since presentation to ED - Out of meds for past 3 days - Unsure baseline. - Patient is noted to have Juani with severely reduced GFR Plan - Consult to psychiatry. Appreciate recommendations - Will not reconcile home psych meds until seen by psych given reduced clearance. - Monitor for need of sitter and/or pink slip given severe psych history (3) Schizophrenia Current Visit: Yes Status: Chronic Assessment and plan: - As above Qualifiers: Schizophrenia type: unspecified Qualified Code(s): F20.9 - Schizophrenia, unspecified (4) PTSD (post-traumatic stress disorder) Current Visit: Yes Status: Chronic Assessment and plan: as above (5) DVT prophylaxis Current Visit: Yes Status: Acute Assessment and plan: - heparin subQ - Time Spent With Patient Total time spent is greater than 50% in coordination of care (as documented) at patient's floor/unit and/or counseling patient: EleanorTripLev - Last Filed: 12/24/17 05:15> Date of Encounter: 12/24/17 Internal Medicine - H&P: HPI History of present illness: Mr. Booker is a 52 year old male All Systems PM: A 10-system review of systems was performed and is negative for pertinent findings except as documented above in the HPI. - Constitutional Vitals: Temp Pulse Resp BP Pulse Ox 98.6 F 96 22 124/95 98 12/24/17 03:11 12/24/17 03:11 12/24/17 03:11 12/24/17 03:11 12/24/17 03:11 Internal Med - H&P Results - Labs CBC & Chem 7: 12/24/17 03:50 12/24/17 03:50 Labs: Short CBC 12/24/17 Range/Units 03:50 WBC 5.6 (4.3-11.1) K/mcL Hgb 11.1 L (12.9-16.9) g/dL Hct 33.1 L (37.5-50.1) % Plt Count 206 (140-400) K/mcL Neutrophils # 3.4 (1.6-8.9) K/mcL BMP 12/24/17 03:50 Sodium 140 Potassium 4.3 Chloride 113 H Carbon Dioxide 13 L BUN 63 H Creatinine 8.18 H Glucose 86 Calcium 7.5 L Liver Function 12/24/17 Range/Units 03:50 Total Bilirubin 0.4 (0.3-1.0) mg/dL Direct Bilirubin 0.1 (0.0-0.2) mg/dL AST 13 (13-39) Units/L ALT 9 (7-52) Units/L Alkaline Phosphatase 50 (34-104) Units/L Albumin 3.2 L (3.5-5.7) g/dL - Attending Attestation The patient was seen and examined by me, case discussed with resident in detail. Agapito Booker is a 52-year-old man who on review of old records and seemed to have not history significant for psychotic disorders which has been managed by the psychiatry service with prior suicidal attempts. We received a call from the emergency room at [facility] stating that this gentleman was found lying down in a ditch for an unknown period of time, brought in by medics and clinical state concerning for deranged mental status. His labs were notable for serum creatinine of 7.7 as was reported to me with potassium of 4.7 , BUN of 60, bicarbonate of 14, chloride of 107, calcium of 8. A head CT was performed which was unremarkable. He received an initial infusion of fluids with no improvement in his serum creatinine though his mental status was better and only having uncontrolled movements all over his body. He was transferred here for further evaluation. On my assessment he is alert awake and oriented to person place and situation. He states that he has not been on his medications for a number of days and that the twitching he has on his body is something that has happened on multiple occasions in the past. He is unable to state what has happened to him in the last few day stating he does not have memory of it and that he was walking somewhere. He cannot specify who he lives with or where he lives. Physical exam was remarkable for a disheveled man with multiple cuts on both forearms which appear self-inflicted, dry skin and mucous membranes. No pain on abdominal palpation. No pericardial rub. No asterixis. Generalized uncontrollable movements all over his body suggestive of tardive dyskinesia. He is asking for food as he reports poor oral intake over the past few days in addition to the reduced urine output. We will repeat comprehensive labs here and consult nephrology. The etiology of his acute kidney injury which is currently stage III is unclear. We will obtain urine toxicology and assess for toxic alcohols. We will evaluate response to fluid resuscitation. There is a high likelihood of acute tubular necrosis from exogenous factors. We will obtain coags in preparation for access for possible renal replacement therapy. We will hold on neuroleptic agents and sedatives for now pending psychiatry consultation as their assistance will be required for his mental evaluation and resumption of medications. All medications should be dosed for GFR less than 15 ml/min. We will place him on DVT prophylaxis with subcutaneous heparin. Continue monitoring on telemetry in the setting of possible electrolytic imbalances. - Time Spent With Patient Total time spent is greater than 50% in coordination of care (as documented) at patient's floor/unit and/or counseling patient:
[2017-12-24 04:14] LABS: Prothrombin Time 11.6 Seconds (9.4-12.1)
[2017-12-24 04:16] LABS: Activated Partial Thrombo Time 31.3 Seconds (26.0-36.0)
[2017-12-24] MEDS: 0.9 % Sodium Chloride 1,000 ML IVC SCH ×3 (04:17→18:33)
[2017-12-24 04:28] LABS: Albumin 3.2 g/dL (3.5-5.7); Albumin/Globulin Ratio 1.4 (1.1-2.2); Bilirubin,Direct 0.1 mg/dL (0.0-0.2); Bilirubin,Indirect 0.3 mg/dL (0.0-1.2); Bilirubin,Total 0.4 mg/dL (0.3-1.0); Calcium 7.5 mg/dL (8.6-10.3); Globulin 2.3 g/dL (2.4-3.5); Magnesium 2.1 mg/dL (1.6-2.6); Phosphorous 7.7 mg/dL (2.7-4.5); Potassium 4.3 mEq/L (3.5-5.1); Total Protein 5.5 g/dL (6.4-8.9)
[2017-12-24] MEDS: *HR* Heparin 5,000 UNIT/ML VIAL SQ SCH ×3 (06:07→21:04)
[2017-12-24 07:59] LABS: Hepatitis B Surface Antigen Nonreactive (Nonreactive)
--- NOTE | 2017-12-24 10:20 | Nephrology Consult Note ---
Date of Encounter: 12/24/17 Time of Encounter: 10:11 Assessment and Plan (1) JUANI (acute kidney injury) Current Visit: Yes Status: Acute JUANI is multifactorial at this point. Serum and lab studies ordered. Retroperitoneal ultrasound ordered for this evening. Briggs catheter placed for urinary retention greater than 900 mL's. Strict I&O Avoid nephrotoxins and renal dose all medications. (2) Altered mental status Current Visit: No Status: Acute Per primary. Qualifiers: Altered mental status type: unspecified Qualified Code(s): R41.82 - Altered mental status, unspecified History of Present Illness - Reason for Consult Consult date: 12/24/17 Acute Kidney Injury - Chief Complaint JUANI - History of Present Illness Mr. Booker is a 52 year old Male with PMH: PMHx of schizophrenia, depression, multiple suicide attempts, PTSD, bipolar disorder. Was transferred from [facility] after being found down ont he side of the road. Pt appeared alert but was a poor historian so most information is from record. No previous Scr and GFR to know if he has kidney disease at baseline. Denies CP, SOB, nausea, vomiting, or diarrhea. Upon examination pt is alert to name only. Will not state medical history or medications. It appears pt has not voided this admission at all, bladder scan resulted in greater than 999 MLS of urine. Order placed to place briggs cath and obtain UDS and other urine studies. Instructed RN to clamp briggs around 400 ccs of returned urine to help prevent spasms. At this point JUANI is likely multifactorial and etiology is unclear. Serum and urine studies ordered. Retroperitoneal US already ordered by primary team. Continue IVF. Past Med Surg Social Fam HX - Past Medical History Medical history: myocardial infarction Additional medical history: per pt sts [facility] told him has prostate cancer Psychiatric history: PTSD, prior suicide attempt, previous psychiatric hospitalization - Past Surgical History Surgical History: orthopedic, other (Right hand surgery) Additional surgical history: Right hand - Social History Smoking Status: Current every day smoker Packs per day: 1 Smokeless Tobacco Status: No Alcohol use: none Drug use: none - Family History Mother Family Member Ethnicity: Non- Living Status: Father Family Member Ethnicity: Non- Living Status: Sister Family Member Ethnicity: Non- Living Status: Still Living Medications and Allergies Benztropine Mesylate 1 mg PO BID 05/13/17 [History] Cholecalciferol (D-3) [Vitamin D] 2,000 unit PO DAILY 05/13/17 [History] DiphenhydraMINE [Benadryl] 25 mg PO AD PRN 05/13/17 [History] Ibuprofen [Motrin] 400 mg PO Q6H PRN 05/13/17 [History] Lactose-Reduced Food [Ensure Plus] 237 ml PO BID 05/13/17 [History] Melatonin [Melatin] 9 mg PO HS 05/13/17 [History] Mirtazapine [Remeron] 7.5 mg PO HS PRN 05/13/17 [History] hydrOXYzine HCl [Hydroxyzine HCl] 50 mg PO QID PRN 05/13/17 [History] 3 Allergy/AdvReac Type Severity Reaction Status Date / Time codeine AdvReac Nausea Verified 04/23/17 16:33 hydrocodone AdvReac See Verified 05/13/17 15:23 Comments Exam - Vital Signs Vital signs: Initial Vital Signs Temp Pulse Resp BP Pulse Ox 98.6 F 96 22 124/95 98 12/24/17 03:11 12/24/17 03:11 12/24/17 03:11 12/24/17 03:11 12/24/17 03:11 Vital Signs - Last 8 Hours Temp Pulse Resp BP Pulse Ox 12/24/17 07:13 83 12/24/17 07:00 98.5 F 95 24 126/94 99 12/24/17 03:30 100 12/24/17 03:11 98.6 F 96 22 124/95 98 Intake and Output 12/23/17 12/24/17 12/24/17 23:59 07:59 15:59 Intake Total 1120 / 1120 Balance 1120 / 1120 Intake: IV Fluids 1000 / 1000 0.9 % Sodium Chloride 1,000 ML 1000 / 1000 @ 125 mls/hr IVC .Q8H [facility] Rx#: [id number] Oral 120 / 120 Other: Meal Breakfast Percent of Meal Consumed 40% Weight 67.3 kg Blood Glucose* 87 Patient Weight 12/24/17 23:59 Weight 67.3 kg - General Appearance General appearance: chronically ill EENT: ATNC, hearing intact, vision intact Neck: supple Respiratory: clear Cardiology: no edema, normal S1, normal S2 Gastrointestinal: normoactive bowel sounds, no tenderness, no guarding Integumentary: no rash, warm and dry Additional Comments: Alert to self. Psychiatric: cooperative Results - Lab Results 12/24/17 03:50 12/24/17 03:50 Most recent lab results Calcium 7.5 mg/dL (8.6-10.3) L 12/24/17 03:50 Phosphorus 7.7 mg/dL (2.7-4.5) H 12/24/17 03:50 Magnesium 2.1 mg/dL (1.6-2.6) 12/24/17 03:50 Consult Discharge Plan - Plan Referrals: NERIS,PCP [Primary Care Provider] - 01/06/18 10:30 am
[2017-12-24 10:58] LABS: Bilirubin,Urine Negative (Negative); Blood,Urine Negative (Negative); Clarity,Urine Cloudy (Clear); Color,Urine Yellow (Yellow); Glucose,Urine (UA) Normal (Normal); Ketones,Urine Negative (Negative); Leukocyte Esterase,Urine Negative (Negative); Nitrite,Urine Negative (Negative); Protein,Urine Negative (Neg-Trace); Specific Gravity,Urine 1.013 (1.010-1.025); Urobilinogen,Urine Normal (Normal)
[2017-12-24 11:01] LABS: Bacteria,Urine None Seen per hpf (None-Few); Hyaline Casts,Urine None Seen per lpf (None-Few); Squamous Epithelial Cell,Urine Moderate per lpf (None-Few)
[2017-12-24 11:24] LABS: Protein/Creatinine Ratio,Urine 0.12 mg/mg (0.00-0.20)
[2017-12-24 11:25] LABS: Amphetamine Screen,Urine Negative ng/mL (Cutoff=1000); Barbiturate Screen,Urine Negative ng/mL (Cutoff=200); Benzodiazepines Screen,Urine Negative ng/mL (Cutoff=200); Cannabinoid Screen,Urine Negative ng/mL (Cutoff = 50); Cocaine Screen,Urine Negative ng/mL (Cutoff= 300); Opiate Screen,Urine Negative ng/mL (Cutoff=300); Phencyclidine Screen,Urine Negative ng/mL (Cutoff=25)
[2017-12-24] MEDS ORDERED: *HR* Belladonna Alkaloids/Opium 30 MG RECTAL SUPPOSITORY RC ONE (11:32)
[2017-12-24] MEDS ORDERED: Mirtazapine 15 MG TABLET PO PRN (13:17)
[2017-12-24] MEDS ORDERED: hydrOXYzine pamoate 25 MG CAPSULE PO PRN (13:17)
--- NOTE | 2017-12-24 13:32 | Event Note ---
Date of Encounter: 12/24/17 Time of Encounter: 13:20 pt is examined and reviewed the test reports. reviewed the counter manager note. severe psych disorder and waiting for psych opinion. consult the . [facility] renal awaited.
--- NOTE | 2017-12-24 18:22 | Consult Note ---
Date of Encounter: 12/24/17 Time of Encounter: 17:30 Assessment & Recommendation (1) Post-traumatic stress disorder, chronic Current visit: Yes Status: Acute (2) Drug-induced subacute dyskinesia Current visit: Yes Status: Acute History of Present Illness Patient: known to practice within the last 3 years Requesting Physician: Lev Dominique MD Reason for consult: I dont remember white I was taking History of present illness: Mr. Booker is a 52 year old male This patient is known to me from the [place]. I worked at the [facility] for 5 years and this patient was seen in the last 5-7 years by me. During this period of time the patient had a diagnosis of PTSD and it was 1 100 % service connected. The patient is a poor historian and not able to tell me much. In the past they have treated him with a variety of antipsychotics including first generation antipsychotics such as haloperidol and Mellaril. The patient's PTSD was complicated by visual and auditory hallucinations. Noncompliance. Areas of dissociation with memory loss. For many years the patient lived in [facility]. He lived with a woman who had a variety of problems and recently . The patient was found in [facility] suggesting that he is taken up with a new friend or acquaintance there. The patient can tell me this but cannot tell me much more several weeks ago he was in [facility]. This is the inpatient psychiatric unit at the [facility] he was discharged on medicines but the minute list of medicines is likely to be incomplete most notably there is no antipsychotic now he has acute kidney injury and this may limit some of the choices. The patient is disturbed by the recurrent movements of the neck arms and legs. These are choreiform and athetoid movements and the patient is very uncomfortable. The patient did not report other psychiatric disturbed disturbances and is currently getting medical treatment for his kidney disease. CC: Lev Dominique MD Past Med Surg Social Fam HX - Past Medical History Source: unable to obtain Medical history: myocardial infarction - Past Psychiatric History Psychiatric history: Reports: PTSD, other Family psychiatric history: Unknown Family History of Suicide: Unknown - Past Surgical History Surgical History: orthopedic, other (Right hand surgery) - Social History Smoking Status: Current every day smoker Smokeless Tobacco Status: No Alcohol use: none Drug use: none Occupational status: disabled Current living situation: Homeless Activity Level: Independent ambulation Recent Out of Country Travel Within the Last 8 Weeks: No Exposure or Possible Exposure to Illness During Travel: No - Family History Mother Family Member Ethnicity: Non- Living Status: Father Family Member Ethnicity: Non- Living Status: Sister Family Member Ethnicity: Non- Living Status: Still Living Medications & Allergies Benztropine Mesylate 1 mg PO BID 05/13/17 [History] Cholecalciferol (D-3) [Vitamin D] 2,000 unit PO DAILY 05/13/17 [History] DiphenhydraMINE [Benadryl] 25 mg PO Q6H PRN 05/13/17 [History] Ibuprofen [Motrin] 400 mg PO Q6H PRN 05/13/17 [History] Lactose-Reduced Food [Ensure Plus] 237 ml PO BID 05/13/17 [History] Melatonin [Melatin] 9 mg PO HS 05/13/17 [History] Mirtazapine [Remeron] 7.5 mg PO HS PRN 05/13/17 [History] hydrOXYzine HCl [Hydroxyzine HCl] 50 mg PO QID PRN 05/13/17 [History] 3 Allergy/AdvReac Type Severity Reaction Status Date / Time codeine AdvReac Nausea Verified 04/23/17 16:33 hydrocodone AdvReac See Verified 05/13/17 15:23 Comments Review of Systems Neurological: Reports: other. Denies: headache, weakness, numbness, memory loss Psychiatric: Reports: depression, memory loss, difficulty concentrating Psychiatry Exam - Constitutional Vitals: Temp Pulse Resp BP Pulse Ox 97.3 F L 88 20 140/66 96 12/24/17 11:31 12/24/17 16:19 12/24/17 16:19 12/24/17 16:19 12/24/17 16:19 General appearance: age & developmentally appropriate, malodorous, thin - Musculoskeletal Station: shaky Strength & Tone: abnormal extension, abnormal flexion - Psychiatric Patient Orientation: Yes Person, Yes Time, Yes Place Level of alertness: Alert Behavior: anxious Psychomotor activity: Increased Eye Contact: Maintains Eye Contact Mood Description: Anxious, Labile Affect description: congruent with mood Speech Volume: Soft/Quiet Speech pattern: impoverished Language & Vocabulary: limited Thought Process: Slowed Thinking Thought Content: No Suicidal ideation, No Homicidal ideation, No Overt delusions Perceptual Disturbances: No Auditory hallucinations, No Visual hallucinations Attention Span Ability: Unable to Sustain Attention Memory Description: Immediate Intact, Recent Impaired, Remote Impaired Patient Reliability: Not Reliable Historian Intelligence Estimate: Average Judgment: Limited Insight: Minimal Results - Drug Levels and Toxicology Drug Levels and Toxicology: Drug Levels and Toxicity 12/24/17 10:45 Urine Opiates Screen Negative Ur Barbiturates Screen Negative Ur Phencyclidine Scrn Negative Ur Amphetamines Screen Negative U Benzodiazepines Scrn Negative Urine Cocaine Screen Negative U Marijuana (THC) Screen Negative - Labs Labs: Laboratory Last Values WBC 5.6 K/mcL (4.3-11.1) 12/24/17 03:50 RBC 3.53 M/mcL (4.19-5.50) L 12/24/17 03:50 Hgb 11.1 g/dL (12.9-16.9) L 12/24/17 03:50 Hct 33.1 % (37.5-50.1) L 12/24/17 03:50 MCV 93.8 fL (83.0-100.0) 12/24/17 03:50 MCH 31.4 pg (28.0-33.3) 12/24/17 03:50 MCHC 33.5 g/dL (31.6-35.5) 12/24/17 03:50 RDW 13.8 % (11.5-14.5) 12/24/17 03:50 Plt Count 206 K/mcL (140-400) 12/24/17 03:50 MPV 10.7 fL (9.4-12.4) 12/24/17 03:50 Immature Gran % 0.2 % (0-4) 12/24/17 03:50 Seg Neutrophils % 60.6 % 12/24/17 03:50 Lymphocytes % 26.3 % 12/24/17 03:50 Monocytes % 10.4 % 12/24/17 03:50 Eosinophils % 2.1 % 12/24/17 03:50 Basophils % 0.4 % 12/24/17 03:50 Neutrophils # 3.4 K/mcL (1.6-8.9) 12/24/17 03:50 Lymphocytes # 1.5 K/mcL (0.6-4.6) 12/24/17 03:50 Monocytes # 0.6 K/mcL (0.0-1.3) 12/24/17 03:50 Eosinophils # 0.1 K/mcL (0.0-0.6) 12/24/17 03:50 Basophils # 0.0 K/mcL (0.0-0.2) 12/24/17 03:50 PT 11.6 Seconds (9.4-12.1) 12/24/17 03:50 INR 1.0 12/24/17 03:50 APTT 31.3 Seconds (26.0-36.0) 12/24/17 03:50 Sodium 140 mEq/L (136-145) 12/24/17 03:50 Potassium 4.3 mEq/L (3.5-5.1) 12/24/17 03:50 Chloride 113 mEq/L (98-107) H 12/24/17 03:50 Carbon Dioxide 13 mEq/L (23-29) L 12/24/17 03:50 BUN 63 mg/dL (6-20) H 12/24/17 03:50 Creatinine 8.18 mg/dL (0.70-1.30) H 12/24/17 03:50 Est GFR ( Amer) 8 (> 60) L 12/24/17 03:50 Est GFR (Non-Af Amer) 7 (> 60) L 12/24/17 03:50 BUN/Creatinine Ratio 8 (6-26) 12/24/17 03:50 Glucose 86 mg/dL (70-105) 12/24/17 03:50 POC Glucose 87 mg/dL (70-99) 12/24/17 03:16 Calculated Osmolality 307 (280-300) H 12/24/17 03:50 Calcium 7.5 mg/dL (8.6-10.3) L 12/24/17 03:50 Phosphorus 7.7 mg/dL (2.7-4.5) H 12/24/17 03:50 Magnesium 2.1 mg/dL (1.6-2.6) 12/24/17 03:50 Total Bilirubin 0.4 mg/dL (0.3-1.0) 12/24/17 03:50 Direct Bilirubin 0.1 mg/dL (0.0-0.2) 12/24/17 03:50 Indirect Bilirubin 0.3 mg/dL (0.0-1.2) 12/24/17 03:50 AST 13 Units/L (13-39) 12/24/17 03:50 ALT 9 Units/L (7-52) 12/24/17 03:50 Alkaline Phosphatase 50 Units/L (34-104) 12/24/17 03:50 Creatine Kinase 240 Units/L (30-223) H 12/24/17 03:50 Serum Total Protein 5.5 g/dL (6.4-8.9) L 12/24/17 03:50 Albumin 3.2 g/dL (3.5-5.7) L 12/24/17 03:50 Globulin 2.3 g/dL (2.4-3.5) L 12/24/17 03:50 Albumin/Globulin Ratio 1.4 (1.1-2.2) 12/24/17 03:50 Urine Color Yellow (Yellow) 12/24/17 10:09 Urine Clarity Cloudy (Clear) A 12/24/17 10:09 Urine pH 6.0 pH Units (5.0-8.0) 12/24/17 10:09 Ur Specific [place] 1.013 (1.010-1.025) 12/24/17 10:09 Urine Protein Negative mg/dL (Neg-Trace) 12/24/17 10:09 Urine Glucose (UA) Normal mg/dL (Normal) 12/24/17 10:09 Urine Ketones Negative mg/dL (Negative) 12/24/17 10:09 Urine Blood Negative (Negative) 12/24/17 10:09 Urine Nitrite Negative (Negative) 12/24/17 10:09 Urine Bilirubin Negative (Negative) 12/24/17 10:09 Urine Urobilinogen Normal mg/dL (Normal) 12/24/17 10:09 Ur Leukocyte Esterase Negative (Negative) 12/24/17 10:09 Urine Microscopic RBC 5-15 per hpf (0-3) H 12/24/17 10:09 Urine Microscopic WBC 5-15 per hpf (0-3) H 12/24/17 10:09 Ur Eosinophil Smear 0 % (None Seen) 12/24/17 10:10 Ur Squamous Epith Cells Moderate per lpf (None-Few) H 12/24/17 10:09 Urine Bacteria None Seen per hpf (None-Few) 12/24/17 10:09 Hyaline Casts None Seen per lpf (None-Few) 12/24/17 10:09 Ur Culture Indicated? NO (NO) 12/24/17 10:09 Urine Creatinine 136 mg/dL 12/24/17 10:09 Protein/Creatinin Ratio 0.12 mg/mg (0.00-0.20) 12/24/17 10:09 Urine Sodium 84.4 mEq/L 12/24/17 10:45 Urine Total Protein 16 mg/dL (1-14) H 12/24/17 10:09 Urine Opiates Screen Negative ng/mL (Wquuiz=073) 12/24/17 10:45 Ur Barbiturates Screen Negative ng/mL (Auwhvr=184) 12/24/17 10:45 Ur Phencyclidine Scrn Negative ng/mL (Cutoff=25) 12/24/17 10:45 Ur Amphetamines Screen Negative ng/mL (Hvriej=4152) 12/24/17 10:45 U Benzodiazepines Scrn Negative ng/mL (Zalnvr=628) 12/24/17 10:45 Urine Cocaine Screen Negative ng/mL (Cutoff= 300) 12/24/17 10:45 U Marijuana (THC) Screen Negative ng/mL (Cutoff = 50) 12/24/17 10:45 Ur Drug Screen Interp See Below 12/24/17 10:45 Hep Bs Antigen Nonreactive (Nonreactive) 12/24/17 03:50 Hep Bs Antibody 0.00 mIU/mL 12/24/17 03:50 Consult Discharge Plan - Plan [facility] Provider[facility] - 01/06/18 10:30 am
--- NOTE | 2017-12-24 20:20 | Electrocardiograph Report ---
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
[2017-12-24] MEDS ORDERED: LACTOSE REDUCED FOOD PO SCH (21:00)
[2017-12-24] MEDS: Melatonin 3 MG TABLET PO SCH (21:04)
[2017-12-25] MEDS: 0.9 % Sodium Chloride 1,000 ML IVC SCH ×2 (02:34→10:42)
[2017-12-25 03:54] LABS: Basophils % 0.3 %; Eosinophils # 0.1 K/mcL (0.0-0.6); Eosinophils % 2.5 %; Hemoglobin 9.8 g/dL (12.9-16.9); Immature Granulocytes % 0.3 % (0-4); Lymphocytes # 1.4 K/mcL (0.6-4.6); Lymphocytes % 37.3 %; Mean Corpuscular HGB Conc 33.8 g/dL (31.6-35.5); Mean Corpuscular Hemoglobin 31.3 pg (28.0-33.3); Mean Corpuscular Volume 92.7 fL (83.0-100.0); Mean Platelet Volume 10.8 fL (9.4-12.4); Monocytes # 0.5 K/mcL (0.0-1.3); Monocytes % 13.2 %; Neutrophils # 1.7 K/mcL (1.6-8.9); Platelet Count 185 K/mcL (140-400); Red Blood Count 3.13 M/mcL (4.19-5.50); Segmented Neutrophils % 46.4 %
[2017-12-25 04:16] LABS: BUN/Creatinine Ratio 17 (6-26); Blood Urea Nitrogen 20 mg/dL (6-20); Calcium 8.4 mg/dL (8.6-10.3); Carbon Dioxide 19 mEq/L (23-29); Chloride 122 mEq/L (98-107); Glucose 147 mg/dL (70-105); Osmolality,Calculated 309 (280-300); Potassium 4.3 mEq/L (3.5-5.1); Sodium 147 mEq/L (136-145); eGFR For Non-African Americans > 60 (> 60)
[2017-12-25] MEDS: *HR* Heparin 5,000 UNIT/ML VIAL SQ SCH ×3 (05:45→20:41)
[2017-12-25] MEDS: Cholecalciferol (D-3) 1,000 UNIT TABLET PO SCH (08:01)
--- NOTE | 2017-12-25 15:40 | Internal Med Progress Note ---
Hospitalist Progress Note - Encounter Date of Encounter: 12/25/17 Time of Encounter: 15:31 - Exam Vitals: Temp Pulse Resp BP Pulse Ox 99.4 F 79 18 124/96 97 12/25/17 10:59 12/25/17 07:25 12/25/17 07:25 12/25/17 10:59 12/25/17 10:59 Exam: General appearance: No acute distress, patient has chronic dyskinetic movement disorder, poor historian, follows commands Head exam: Atraumatic Eye exam: EOMI, PERRLA ENT exam: Moist oral mucosa Neck nontender, supple Respiratory exam: Clear to auscultation bilaterally Cardiovascular exam: Regular rate and rhythm, no systolic murmur Abdominal exam: Soft, nontender, nondistended, positive bowel sounds Extremities exam: No calf tenderness, no pedal edema Present: Neurological exam: Grossly intact cranial nerves II through XII, motor 5 x 5 in all 4 extremities - Assessment and Plan (1) Urine retention Current Visit: Yes Status: Acute Assessment and Plan: Patient was found to have significant post void residual almost 900 on bladder scan. Jones catheter was inserted. Urinalysis with no acute finding. Will consult urologist for further management and rule out underlying etiology. Continue Jones for now with a strict I&O's (2) JUANI (acute kidney injury) Current Visit: Yes Status: Acute Assessment and Plan: Most likely secondary to obstructive uropathy as mentioned above but unknown etiology. Creatinine level trended down to normal significantly overnight. Will stop IV fluid. Musical Therapist on board and advice for urology opinion. (3) Schizophrenia Current Visit: Yes Status: Chronic Assessment and Plan: [facility]. Added risperidone and propranolol. Psychiatrists on board and agreed with the management plan and recommended to transfer back and patient [place] psychiatric unit. adz worker on case (4) History of psychiatric disorder Current Visit: Yes Status: Chronic Assessment and Plan: - Known and documented history of schizophrenia, depression, multiple suicidal attempts, PTSD, bipolar disorder. Review of the home medication with the help of pharmacy and resumed. Psychiatry on board. (5) PTSD (post-traumatic stress disorder) Current Visit: Yes Status: Chronic Assessment and Plan: as above (6) DVT prophylaxis Current Visit: Yes Status: Acute Assessment and Plan: - heparin subQ - Time Spent with Patient Total time spent is greater than 50% in coordination of care (as documented) at patient's floor/unit and/or counseling patient: 25 - 35 minutes (Discussed plan with psychiatrist and nephrology) Internal Medicine: Result - Labs CBC & Chem 7: 12/25/17 03:40 12/25/17 03:40 Labs: Short CBC 12/25/17 Range/Units 03:40 WBC 3.7 L (4.3-11.1) K/mcL Hgb 9.8 L (12.9-16.9) g/dL Hct 29.0 L (37.5-50.1) % Plt Count 185 (140-400) K/mcL Neutrophils # 1.7 (1.6-8.9) K/mcL BMP 12/25/17 03:40 Sodium 147 H Potassium 4.3 Chloride 122 H Carbon Dioxide 19 L BUN 20 Creatinine 1.21 Glucose 147 H Calcium 8.4 L - ABG Interpretation ABG results: PT/INR, D-dimer PT 11.6 Seconds (9.4-12.1) 12/24/17 03:50 - Impressions Impressions Retroperitoneum Ultrasound 12/24/17 17:00 IMPRESSION: Small right renal cyst. No evidence of hydronephrosis. Jones catheter within the bladder. Small postvoid residual. Trace amount of fluid in Morison's pouch, nonspecific. Finding could be further evaluated with abdomen/pelvis CT if clinically indicated. D/ / 12/24/2017 20:13:55 Wilfredo Marcus MD / nighat Interpreting Provider: Wilfredo Marcus MD Consult Discharge Plan - Plan [facility] Provider[facility] - 01/06/18 10:30 am (3) Schizophrenia Qualifiers: Schizophrenia type: unspecified Qualified Code(s): F20.9 - Schizophrenia, unspecified
--- NOTE | 2017-12-25 17:55 | Consult Note ---
Date of Encounter: 12/25/17 Time of Encounter: 16:00 Assessment & Recommendation (1) Post-traumatic stress disorder, chronic Current visit: Yes Status: Acute (2) Drug-induced subacute dyskinesia Current visit: Yes Status: Acute History of Present Illness Patient: known to practice within the last 3 years Requesting Physician: Lev Dominique MD Reason for consult: movement disorder History of present illness: Mr. Booker is a 52 year old male Patient is known to me for treatment from the last 7 years. During this time the patient's been on first generation antipsychotics and multiple antipsychotics. More recently the patient's risperidone and propranolol have been obtained from the [place] and are just now getting restarted. The patient continues to have a withdrawal dyskinesia with significant movements. When asked about his mental status he status he felt that he was doing well. He felt that his mood was good and that he can go with his new however she had disappeared not come back although she was a visitor for period time. The patient still needs for his ongoing treatment But the patient denies significant hallucinations delusions or lethality. He feels that he can do well and is on medicines and does not want to go back to the [place] for inpatient care. He is willing to go back for outpatient treatment. CC: Lev Dominique MD Past Med Surg Social Fam HX - Past Medical History Medical history: myocardial infarction - Past Surgical History Surgical History: orthopedic, other (Right hand surgery) - Social History Smoking Status: Current every day smoker Smokeless Tobacco Status: No Alcohol use: none Drug use: none - Family History Mother Family Member Ethnicity: Non- Living Status: Father Family Member Ethnicity: Non- Living Status: Sister Family Member Ethnicity: Non- Living Status: Still Living Medications & Allergies Benztropine Mesylate 1 mg PO BID 05/13/17 [History] Cholecalciferol (D-3) [Vitamin D] 2,000 unit PO DAILY 05/13/17 [History] DiphenhydraMINE [Benadryl] 25 mg PO Q6H PRN 05/13/17 [History] Ibuprofen [Motrin] 400 mg PO Q6H PRN 05/13/17 [History] Lactose-Reduced Food [Ensure Plus] 237 ml PO BID 05/13/17 [History] Melatonin [Melatin] 9 mg PO HS 05/13/17 [History] Mirtazapine [Remeron] 7.5 mg PO HS PRN 05/13/17 [History] hydrOXYzine HCl [Hydroxyzine HCl] 50 mg PO QID PRN 05/13/17 [History] Propranolol [Inderal] 10 mg PO BID 12/25/17 [History] risperiDONE [Risperdal] 2 mg PO BID 12/25/17 [History] 3 Allergy/AdvReac Type Severity Reaction Status Date / Time codeine AdvReac Nausea Verified 04/23/17 16:33 hydrocodone AdvReac See Verified 05/13/17 15:23 Comments Review of Systems Psychiatric: Reports: depression, anxiety Psychiatry Exam - Constitutional Vitals: Temp Pulse Resp BP Pulse Ox 98.3 F 77 16 137/87 97 12/25/17 16:14 12/25/17 16:14 12/25/17 16:14 12/25/17 16:14 12/25/17 16:14 General appearance: age & developmentally appropriate, thin - Musculoskeletal Station: bizarre mannerisms Strength & Tone: abnormal extension, abnormal flexion - Psychiatric Patient Orientation: Yes Person, Yes Time, Yes Place Level of alertness: Alert Behavior: restless Psychomotor activity: Increased Eye Contact: Maintains Eye Contact Mood Description: Anxious Affect description: anxious Speech Volume: Normal Language & Vocabulary: consistent with education Thought Process: Linear, Goal Oriented Thought Content: Yes Intact Perceptual Disturbances: No Auditory hallucinations, No Visual hallucinations Attention Span Ability: Capable of Focused Attention Memory Description: Grossly Intact Patient Reliability: Questionable Historian Intelligence Estimate: Average Judgment: Limited Insight: Partial Results - Labs Labs: Laboratory Last Values WBC 3.7 K/mcL (4.3-11.1) L 12/25/17 03:40 RBC 3.13 M/mcL (4.19-5.50) L 12/25/17 03:40 Hgb 9.8 g/dL (12.9-16.9) L 12/25/17 03:40 Hct 29.0 % (37.5-50.1) L 12/25/17 03:40 MCV 92.7 fL (83.0-100.0) 12/25/17 03:40 MCH 31.3 pg (28.0-33.3) 12/25/17 03:40 MCHC 33.8 g/dL (31.6-35.5) 12/25/17 03:40 RDW 14.0 % (11.5-14.5) 12/25/17 03:40 Plt Count 185 K/mcL (140-400) 12/25/17 03:40 MPV 10.8 fL (9.4-12.4) 12/25/17 03:40 Immature Gran % 0.3 % (0-4) 12/25/17 03:40 Seg Neutrophils % 46.4 % 12/25/17 03:40 Lymphocytes % 37.3 % 12/25/17 03:40 Monocytes % 13.2 % 12/25/17 03:40 Eosinophils % 2.5 % 12/25/17 03:40 Basophils % 0.3 % 12/25/17 03:40 Neutrophils # 1.7 K/mcL (1.6-8.9) 12/25/17 03:40 Lymphocytes # 1.4 K/mcL (0.6-4.6) 12/25/17 03:40 Monocytes # 0.5 K/mcL (0.0-1.3) 12/25/17 03:40 Eosinophils # 0.1 K/mcL (0.0-0.6) 12/25/17 03:40 Basophils # 0.0 K/mcL (0.0-0.2) 12/25/17 03:40 PT 11.6 Seconds (9.4-12.1) 12/24/17 03:50 INR 1.0 12/24/17 03:50 APTT 31.3 Seconds (26.0-36.0) 12/24/17 03:50 Sodium 147 mEq/L (136-145) H 12/25/17 03:40 Potassium 4.3 mEq/L (3.5-5.1) 12/25/17 03:40 Chloride 122 mEq/L (98-107) H 12/25/17 03:40 Carbon Dioxide 19 mEq/L (23-29) L 12/25/17 03:40 BUN 20 mg/dL (6-20) 12/25/17 03:40 Creatinine 1.21 mg/dL (0.70-1.30) 12/25/17 03:40 Est GFR ( Amer) > 60 (> 60) 12/25/17 03:40 Est GFR (Non-Af Amer) > 60 (> 60) 12/25/17 03:40 BUN/Creatinine Ratio 17 (6-26) 12/25/17 03:40 Glucose 147 mg/dL (70-105) H 12/25/17 03:40 POC Glucose 87 mg/dL (70-99) 12/24/17 03:16 Calculated Osmolality 309 (280-300) H 12/25/17 03:40 Calcium 8.4 mg/dL (8.6-10.3) L 12/25/17 03:40 Phosphorus 7.7 mg/dL (2.7-4.5) H 12/24/17 03:50 Magnesium 2.1 mg/dL (1.6-2.6) 12/24/17 03:50 Total Bilirubin 0.4 mg/dL (0.3-1.0) 12/24/17 03:50 Direct Bilirubin 0.1 mg/dL (0.0-0.2) 12/24/17 03:50 Indirect Bilirubin 0.3 mg/dL (0.0-1.2) 12/24/17 03:50 AST 13 Units/L (13-39) 12/24/17 03:50 ALT 9 Units/L (7-52) 12/24/17 03:50 Alkaline Phosphatase 50 Units/L (34-104) 12/24/17 03:50 Creatine Kinase 95 Units/L (30-223) 12/25/17 03:40 Serum Total Protein 5.5 g/dL (6.4-8.9) L 12/24/17 03:50 Albumin 3.2 g/dL (3.5-5.7) L 12/24/17 03:50 Globulin 2.3 g/dL (2.4-3.5) L 12/24/17 03:50 Albumin/Globulin Ratio 1.4 (1.1-2.2) 12/24/17 03:50 Urine Color Yellow (Yellow) 12/24/17 10:09 Urine Clarity Cloudy (Clear) A 12/24/17 10:09 Urine pH 6.0 pH Units (5.0-8.0) 12/24/17 10:09 Ur Specific [place] 1.013 (1.010-1.025) 12/24/17 10:09 Urine Protein Negative mg/dL (Neg-Trace) 12/24/17 10:09 Urine Glucose (UA) Normal mg/dL (Normal) 12/24/17 10:09 Urine Ketones Negative mg/dL (Negative) 12/24/17 10:09 Urine Blood Negative (Negative) 12/24/17 10:09 Urine Nitrite Negative (Negative) 12/24/17 10:09 Urine Bilirubin Negative (Negative) 12/24/17 10:09 Urine Urobilinogen Normal mg/dL (Normal) 12/24/17 10:09 Ur Leukocyte Esterase Negative (Negative) 12/24/17 10:09 Urine Microscopic RBC 5-15 per hpf (0-3) H 12/24/17 10:09 Urine Microscopic WBC 5-15 per hpf (0-3) H 12/24/17 10:09 Ur Eosinophil Smear 0 % (None Seen) 12/24/17 10:10 Ur Squamous Epith Cells Moderate per lpf (None-Few) H 12/24/17 10:09 Urine Bacteria None Seen per hpf (None-Few) 12/24/17 10:09 Hyaline Casts None Seen per lpf (None-Few) 12/24/17 10:09 Ur Culture Indicated? NO (NO) 12/24/17 10:09 Urine Creatinine 136 mg/dL 12/24/17 10:09 Protein/Creatinin Ratio 0.12 mg/mg (0.00-0.20) 12/24/17 10:09 Urine Sodium 84.4 mEq/L 12/24/17 10:45 Urine Total Protein 16 mg/dL (1-14) H 12/24/17 10:09 Urine Opiates Screen Negative ng/mL (Tvgecs=615) 12/24/17 10:45 Ur Barbiturates Screen Negative ng/mL (Kyvflj=667) 12/24/17 10:45 Ur Phencyclidine Scrn Negative ng/mL (Cutoff=25) 12/24/17 10:45 Ur Amphetamines Screen Negative ng/mL (Swxemo=7270) 12/24/17 10:45 U Benzodiazepines Scrn Negative ng/mL (Sgjacb=028) 12/24/17 10:45 Urine Cocaine Screen Negative ng/mL (Cutoff= 300) 12/24/17 10:45 U Marijuana (THC) Screen Negative ng/mL (Cutoff = 50) 12/24/17 10:45 Ur Drug Screen Interp See Below 12/24/17 10:45 Rheumatoid Factor < 10 IU/mL (Less than 14) 12/25/17 03:40 Hep Bs Antigen Nonreactive (Nonreactive) 12/24/17 03:50 Hep Bs Antibody 0.00 mIU/mL 12/24/17 03:50 - Impressions Impressions Retroperitoneum Ultrasound 12/24/17 17:00 IMPRESSION: Small right renal cyst. No evidence of hydronephrosis. Jones catheter within the bladder. Small postvoid residual. Trace amount of fluid in Morison's pouch, nonspecific. Finding could be further evaluated with abdomen/pelvis CT if clinically indicated. D/ / 12/24/2017 20:13:55 Wilfredo Marcus MD / nighat Interpreting Provider: Wilfredo Marcus MD Consult Discharge Plan - Plan Referrals: [facility],PCP [Primary Care Provider] - 01/06/18 10:30 am
--- NOTE | 2017-12-25 18:44 | Urology - Consult Note ---
Date of Encounter: 12/25/17 Time of Encounter: 18:42 - Assessment and Plan (1) Urine retention Current Visit: Yes Status: Acute Assessment and plan: Patient had unknown amount drained from bladder with urinary retention. I discussed with the patient that my recommendation would be to leave the catheter in place for 1 week and then attempt avoiding trauma office. Patient would like to catheter removed prior to discharge. Patient can have catheter removed tomorrow morning. He can follow-up as needed. (2) JUANI (acute kidney injury) Current Visit: Yes Status: Acute Assessment and plan: This has resolved with catheter drainage. I do have some concern that the patient's request to have his catheter removed that this acute renal insufficiency may return. Patient understands this risk. Urology CN:HPI Consult date: 12/25/17 Reason for consult Urology: Other (urinary retention) Requesting physician: Akanksha Linder History of present illness: Agapito is a 52-year-old male with a history of multiple psychiatric disorders. Patient was found down and taken to an outside facility and then transferred to our facility. Patient was found to be in acute renal failure and and urinary retention. Catheter was placed and his renal failure has resolved. Patient did have a renal ultrasound performed here which showed no obvious bilateral hydronephrosis. Patient states that while he is tolerating the catheter he wants it removed as soon as possible. No current flank pain. Patient denies any prior history of difficulty with voiding. Past Med Surg Social Fam HX - Past Medical History Medical history: myocardial infarction Additional medical history: [facility] Psychiatric history: PTSD, other - Past Surgical History Surgical History: orthopedic, other (Right hand surgery) Additional surgical history: Right hand - Social History Smoking Status: Current every day smoker Packs per day: 1 Smokeless Tobacco Status: No Alcohol use: none Drug use: none - Family History Mother Family Member Ethnicity: Non- Living Status: Father Family Member Ethnicity: Non- Living Status: Sister Family Member Ethnicity: Non- Living Status: Still Living Medications and Allergies Benztropine Mesylate 1 mg PO BID 05/13/17 [History] Cholecalciferol (D-3) [Vitamin D] 2,000 unit PO DAILY 05/13/17 [History] DiphenhydraMINE [Benadryl] 25 mg PO Q6H PRN 05/13/17 [History] Ibuprofen [Motrin] 400 mg PO Q6H PRN 05/13/17 [History] Lactose-Reduced Food [Ensure Plus] 237 ml PO BID 05/13/17 [History] Melatonin [Melatin] 9 mg PO HS 05/13/17 [History] Mirtazapine [Remeron] 7.5 mg PO HS PRN 05/13/17 [History] hydrOXYzine HCl [Hydroxyzine HCl] 50 mg PO QID PRN 05/13/17 [History] Propranolol [Inderal] 10 mg PO BID 12/25/17 [History] risperiDONE [Risperdal] 2 mg PO BID 12/25/17 [History] 3 Allergy/AdvReac Type Severity Reaction Status Date / Time codeine AdvReac Nausea Verified 04/23/17 16:33 hydrocodone AdvReac See Verified 05/13/17 15:23 Comments Review of Systems ROS unobtainable: due to mental status Exam Initial Vital Signs Temp Pulse Resp BP Pulse Ox 98.6 F 96 22 124/95 98 12/24/17 03:11 12/24/17 03:11 12/24/17 03:11 12/24/17 03:11 12/24/17 03:11 General/Neuological: alert and oriented x 3 with spontaneous movements of upper and lower extremities Eyes: normal pupils, non-icteric Neck: no lymphadenopathy noted, supple to touch Cardiovascular: RRR, no murmurs Respiratory: normal respiratory effort, clear bilaterally ABD: soft, nontender, no masses palpated, good bowel sounds Back: no pain on percussion bilaterally : normal phallus, normal scrotum, testicles and epididymides normal, urethral meatus normal catheter in place draining clear urine Skin: no rashes noted Musculoskeletal: ROMx4 - General physical appearance Present: moderate distress - Eyes Absent: icteric Urology Results - Labs 12/25/17 03:40 12/25/17 03:40 Abnormal lab results WBC 3.7 K/mcL (4.3-11.1) L 12/25/17 03:40 RBC 3.13 M/mcL (4.19-5.50) L 12/25/17 03:40 Hgb 9.8 g/dL (12.9-16.9) L 12/25/17 03:40 Hct 29.0 % (37.5-50.1) L 12/25/17 03:40 Sodium 147 mEq/L (136-145) H 12/25/17 03:40 Chloride 122 mEq/L (98-107) H 12/25/17 03:40 Carbon Dioxide 19 mEq/L (23-29) L 12/25/17 03:40 Glucose 147 mg/dL (70-105) H 12/25/17 03:40 Calculated Osmolality 309 (280-300) H 12/25/17 03:40 Calcium 8.4 mg/dL (8.6-10.3) L 12/25/17 03:40 Phosphorus 7.7 mg/dL (2.7-4.5) H 12/24/17 03:50 Serum Total Protein 5.5 g/dL (6.4-8.9) L 12/24/17 03:50 Albumin 3.2 g/dL (3.5-5.7) L 12/24/17 03:50 Globulin 2.3 g/dL (2.4-3.5) L 12/24/17 03:50 Urine Clarity Cloudy (Clear) A 12/24/17 10:09 Urine Microscopic RBC 5-15 per hpf (0-3) H 12/24/17 10:09 Urine Microscopic WBC 5-15 per hpf (0-3) H 12/24/17 10:09 Ur Squamous Epith Cells Moderate per lpf (None-Few) H 12/24/17 10:09 Urine Total Protein 16 mg/dL (1-14) H 12/24/17 10:09 Diabetes panel 12/25/17 Range/Units 03:40 Sodium 147 H (136-145) mEq/L Potassium 4.3 (3.5-5.1) mEq/L Chloride 122 H (98-107) mEq/L Carbon Dioxide 19 L (23-29) mEq/L BUN 20 (6-20) mg/dL Creatinine 1.21 (0.70-1.30) mg/dL Glucose 147 H (70-105) mg/dL Calcium 8.4 L (8.6-10.3) mg/dL Calcium panel 12/25/17 Range/Units 03:40 Calcium 8.4 L (8.6-10.3) mg/dL Pituitary panel 12/25/17 Range/Units 03:40 Sodium 147 H (136-145) mEq/L Potassium 4.3 (3.5-5.1) mEq/L Chloride 122 H (98-107) mEq/L Carbon Dioxide 19 L (23-29) mEq/L BUN 20 (6-20) mg/dL Creatinine 1.21 (0.70-1.30) mg/dL Glucose 147 H (70-105) mg/dL Calcium 8.4 L (8.6-10.3) mg/dL Adrenal panel 12/25/17 Range/Units 03:40 Sodium 147 H (136-145) mEq/L Potassium 4.3 (3.5-5.1) mEq/L Chloride 122 H (98-107) mEq/L Carbon Dioxide 19 L (23-29) mEq/L BUN 20 (6-20) mg/dL Creatinine 1.21 (0.70-1.30) mg/dL Glucose 147 H (70-105) mg/dL Calcium 8.4 L (8.6-10.3) mg/dL All other labs normal. - Imaging US - abdomen: image reviewed Consult Discharge Plan - Plan [facility] - 01/06/18 10:30 am
[2017-12-25] MEDS: risperiDONE 1 MG TABLET PO SCH (20:41)
[2017-12-25] MEDS: Melatonin 3 MG TABLET PO SCH (20:41)
[2017-12-26 03:58] LABS: Basophils % 0.6 %; Eosinophils # 0.2 K/mcL (0.0-0.6); Eosinophils % 3.1 %; Hematocrit 31.5 % (37.5-50.1); Hemoglobin 10.3 g/dL (12.9-16.9); Immature Granulocytes % 0.2 % (0-4); Lymphocytes # 2.2 K/mcL (0.6-4.6); Lymphocytes % 43.4 %; Mean Corpuscular HGB Conc 32.7 g/dL (31.6-35.5); Mean Corpuscular Hemoglobin 30.4 pg (28.0-33.3); Mean Corpuscular Volume 92.9 fL (83.0-100.0); Mean Platelet Volume 11.2 fL (9.4-12.4); Monocytes # 0.5 K/mcL (0.0-1.3); Monocytes % 9.2 %; Neutrophils # 2.2 K/mcL (1.6-8.9); Platelet Count 235 K/mcL (140-400); Red Blood Count 3.39 M/mcL (4.19-5.50); Red Cell Distribution Width 13.8 % (11.5-14.5); Segmented Neutrophils % 43.5 %
[2017-12-26 04:18] LABS: BUN/Creatinine Ratio 15 (6-26); Blood Urea Nitrogen 12 mg/dL (6-20); Calcium 9.1 mg/dL (8.6-10.3); Carbon Dioxide 23 mEq/L (23-29); Chloride 115 mEq/L (98-107); Glucose 95 mg/dL (70-105); Osmolality,Calculated 298 (280-300); Sodium 144 mEq/L (136-145); eGFR For Non-African Americans > 60 (> 60)
[2017-12-26] MEDS: *HR* Heparin 5,000 UNIT/ML VIAL SQ SCH (06:12)
[2017-12-26] MEDS: Cholecalciferol (D-3) 1,000 UNIT TABLET PO SCH (08:12)
[2017-12-26] MEDS: risperiDONE 1 MG TABLET PO SCH (08:12)
[2017-12-26 11:39] VITALS: BP 127/98
--- NOTE | 2017-12-26 11:59 | Nephrology Progress Note ---
Date of Encounter: 12/26/17 Time of Encounter: 11:58 - Assessment and Plan (1) JUANI (acute kidney injury) Current Visit: Yes Status: Acute Patient with JUANI that has resolved. His creatinine is back to normal. Will sign off. Please call with questions. Subjective Principal diagnosis: JUANI Interval history: Patient seen. No new complaint. Objective - Vital Signs Vital signs: Vital Signs Temp Pulse Resp BP Pulse Ox 12/26/17 11:25 98.7 F 81 17 127/98 98 12/26/17 11:24 98.7 F 81 17 127/95 98 12/26/17 08:15 98.5 F 68 16 133/88 100 12/26/17 07:19 98.5 F 68 16 133/88 100 12/26/17 03:45 98.5 F 68 14 140/98 100 12/25/17 23:18 98.6 F 78 19 131/89 100 12/25/17 19:43 98.1 F 93 21 140/118 98 12/25/17 16:14 98.3 F 77 16 137/87 97 Intake and Output 12/25/17 12/26/17 12/26/17 23:59 07:59 15:59 Intake Total 2180 / 2180 720 / 720 Output Total 1800 / 1800 1150 / 1150 Balance 380 / 380 -430 / -430 Intake: IV Fluids 800 / 800 0.9 % Sodium Chloride 1,000 ML 800 / 800 @ 125 mls/hr IVC .Q8H [facility] Rx#: [id number] Oral 1380 / 1380 720 / 720 Output: Catheter 1800 / 1800 1150 / 1150 Urethral (Jones) 1150 / 1150 Other: Meal Dinner Breakfast Percent of Meal Consumed 100% 100% Weight 65 kg Patient Weight 12/26/17 23:59 Weight 65 kg - General Appearance General appearance: Present: well-developed, well-nourished EENT: Present: ATNC - Lab 12/26/17 03:18 12/26/17 03:18 Most recent lab results Calcium 9.1 mg/dL (8.6-10.3) 12/26/17 03:18 Phosphorus 7.7 mg/dL (2.7-4.5) H 12/24/17 03:50 Magnesium 2.1 mg/dL (1.6-2.6) 12/24/17 03:50 Urine Creatinine 136 mg/dL 12/24/17 10:09 Urine Sodium 84.4 mEq/L 12/24/17 10:45 Urine Total Protein 16 mg/dL (1-14) H 12/24/17 10:09 Consult Discharge Plan - Plan [facility]Other] - 01/15/18 3:00 pm [facility] - 01/06/18 10:30 am
--- NOTE | 2017-12-26 12:23 | Discharge Summary ---
- NOTES TO OUTPATIENT PROVIDER Notes to Outpatient Provider: Follow-up with urologist on OPD basis within 1 week or earlier if any urine attention. Follow discharge instruction as per psychiatrist-keep the scheduled outpatient appointment. Follow with PCP in 3-5 days Orders not resulted at time of discharge: Pending orders 12/24/17 03:50 Ethylene Glycol Stat Methanol Stat TricyclicAntidepressant Detect Stat 12/27/17 04:00 Basic Metabolic Panel AM 0400 CBC [Complete Blood Count] [HEME] AM 0400 Date of Encounter: 12/26/17 Time of Encounter: 12:20 - Discharge Diagnosis (1) Urine retention Priority: Primary Status: Acute Assessment and Plan: Patient was found to have significant post void residual almost 900 on bladder scan. Jones catheter was inserted. Urinalysis with no acute finding. Consulted urologist who advise to discharge patient on Jones catheter and follow up on outpatient basis for void trial but patient declined and want to get removed before discharge therefore agreed. Jones catheter was removed before discharge and patient voided urine normally. Risk for urinary retention that can lead to acute renal failure by not having urine catheter was also explained and patient understand the risk. (2) JUANI (acute kidney injury) Priority: Primary Status: Acute Assessment and Plan: Most likely secondary to obstructive uropathy as mentioned above . Resolved now. Nephrologists okay to discharge patient home with follow-up with PCP and urology. (3) Schizophrenia Priority: Secondary Status: Chronic Assessment and Plan: Stable. Patient also have tardive dyskinesia most likely medication induced. Psychiatrist was consulted who wanted to discharge patient on inpatient psych facility at [place] but patient declined and wanted to go home. Therefore he decided to discharge patient home with outpatient psychiatric management. Follow-up appointment is scheduled with him. Continue home medication and further medication adjustment on OPD basis with the help of psychiatrist Qualifiers: Schizophrenia type: unspecified Qualified Code(s): F20.9 - Schizophrenia, unspecified (4) History of psychiatric disorder Priority: Secondary Status: Chronic Assessment and Plan: - Known and documented history of schizophrenia, depression, multiple suicidal attempts, PTSD, bipolar disorder. Review of the home medication (5) PTSD (post-traumatic stress disorder) Priority: Secondary Status: Chronic Assessment and Plan: as above Hospital course: Mr. Booker is a 52 year old male patient got admitted for acute renal failure secondary to urine retention/obstructive uropathy. Document Management Specialist, urologist and psychiatrist was consulted. Clinically patient improved and creatinine back to baseline. Please see details in diagnosis section of discharge summary. At the time of discharge patient is clinically stable, ambulating, tolerating oral diet and no homicidal or suicidal thoughts or plan. Discussed discharge plan with patient and family. - Time Spent with Patient Total time spent providing and/or coordinating discharge services: - Discharge Medications Home Medications: Benztropine Mesylate 1 mg PO BID 05/13/17 [History] Cholecalciferol (D-3) [Vitamin D] 2,000 unit PO DAILY 05/13/17 [History] DiphenhydraMINE [Benadryl] 25 mg PO Q6H PRN 05/13/17 [History] Ibuprofen [Motrin] 400 mg PO Q6H PRN 05/13/17 [History] Lactose-Reduced Food [Ensure Plus] 237 ml PO BID 05/13/17 [History] Melatonin [Melatin] 9 mg PO HS 05/13/17 [History] Mirtazapine [Remeron] 7.5 mg PO HS PRN 05/13/17 [History] hydrOXYzine HCl [Hydroxyzine HCl] 50 mg PO QID PRN 05/13/17 [History] Propranolol [Inderal] 10 mg PO BID 12/25/17 [History] risperiDONE [Risperdal] 2 mg PO BID 12/25/17 [History] Allergies/Adverse Reactions: 3 Allergy/AdvReac Type Severity Reaction Status Date / Time codeine AdvReac Nausea Verified 04/23/17 16:33 hydrocodone AdvReac See Verified 05/13/17 15:23 Comments Date of admission: 12/24/17 03:44 [facility] care physician[facility] Consults: 12/24/17 03:29 Consult to Nephrology [CONS] Routine Consulting Provider: [facility]/EM/CHERYL/SIGIFREDO Reason for Consult: 52 year old male with a significant psychiatric history who presents on transfer from [facility] where he was taken after being found [place] a ditch and now with Creatinine >7 from a baseline of 1.3 weeks ago. Initially reported to have poor mental status but now alert and oriented to person, conversant and cooperative. Has movements of tardive dyskinesia which appear related to his psychotropics however unclear if uremic state may be related. Call Completed: No 12/24/17 03:41 Consult to Psychiatry [CONS] Routine Consulting Provider: Psychiatry [facility] Reason consult: Medication recommendation Other reason and/or additional details: Patient with a longstanding known psychiatric history here for acute kidney injury of unclear etiology after being found in a ditch. has been off neuroleptics. current has movements suggestive of tardive dyskinesia. need evaluation for treatment resumption based on psych history and current state. 12/24/17 13:02 Consult to [facility] [CONS] Routine Reason for SW Consult: discharge planning, has no family, nor living arrangements 12/25/17 15:45 Consult to Urology [CONS] Routine Consulting Provider: [facility] Reason for Consult: Acute urine retention Call Completed: Yes - Constitutional Vitals: Temp Pulse Resp BP Pulse Ox 98.7 F 81 17 127/98 98 12/26/17 11:25 12/26/17 11:25 12/26/17 11:25 12/26/17 11:25 12/26/17 11:25 Exam: General appearance: No acute distress, A&O X 3, dyskinetic movement Respiratory exam: Clear to auscultation bilaterally Cardiovascular exam: Regular rate and rhythm, no systolic murmur Abdominal exam: Soft, nontender, nondistended, positive bowel sounds Extremities exam: No calf tenderness, no pedal edema Present: Neurological exam: CN II-XII intact, no focal deficits. No facial droop. - Patient Status Disposition: Home, Self-Care Condition: Fair Overall status at discharge: patient is back to baseline - Discharge Instructions Follow Up With: [facility] [Other] - 01/15/18 3:00 pm Fabian Downs MD [Partnered Physician] - 01/22/18 11:30 am [place],PCP [Primary Care Provider] - 01/06/18 10:30 am - Diet and Activity Activity: increase activity as tolerated Diet: advance to your usual diet
== END 2017-12-26 12:48 | disposition home or self-care (01) | DRG 684 ==
LOC: 2NNU
PROVIDERS: ADMIT Internal Medicine; ATTEND Internal Medicine